=== PATIENT | male | born 1950 | race American Indian/Alaskan Native ===

== ENCOUNTER 2017-10-17 19:55 | Emergency (ER) | payer MEDICARE, BC, OTHER ==
--- NOTE | 2017-10-17 19:58 | EDM.PDOC ---
ED HPI GENERAL MEDICAL PROBLEM - General Stated Complaint: LT ABDOMINAL PAIN Time Seen by Provider: 10/17/17 19:56 Source of Information: Reports: Patient History Limitations: Reports: No Limitations - History of Present Illness INITIAL COMMENTS - FREE TEXT/NARRATIVE: HISTORY AND PHYSICAL: History of present illness: Patient is a 67-year-old male who presents to the emergency room with complaints of left sided rib pain. He reports that he fell on the ice on 2017 and was evaluated at [facility] and had imaging done here. He has been taking Tylenol [id number] for pain management without any relief. Today, prior to arrival he coughed and felt intense pain to his left low rib. Denies any new falls, trauma or injury. History of COPD, HTN, afib, and PVD. Review of systems: As per history of present illness and below otherwise all systems reviewed and negative. Past medical history: As per history of present illness and as reviewed below otherwise noncontributory. Surgical history: As per history of present illness and as reviewed below otherwise noncontributory. Social history: No reported history of drug or alcohol abuse. Family history: As per history of present illness and as reviewed below otherwise noncontributory. Physical exam: General: Well-developed and well-nourished 67-year-old male. Alert and oriented. Nontoxic appearing and in no acute distress. HEENT: Atraumatic, normocephalic, pupils equal and reactive bilaterally, negative for conjunctival pallor or scleral icterus, mucous membranes moist, throat clear, neck supple, nontender, trachea midline. No drooling or trismus noted. No meningeal signs Lungs: Rhonchi noted to posterior bases bilaterally, breath sounds equal bilaterally, chest nontender. Heart: S1S2, regular rate and rhythm without overt murmur Abdomen: Soft, nondistended, nontender. Negative for masses or hepatosplenomegaly. Negative for costovertebral tenderness. Pelvis: Stable nontender. Genitourinary: Deferred. Rectal: Deferred. Skin: Intact, warm, dry. No lesions or rashes noted. Extremities: Atraumatic, moves all extremities per self without difficulty or deficits, does have mild tenderness to the left mid-axillary chest wall negative for cords or calf pain. Neurovascular unremarkable. Neuro: Awake, alert, oriented. Cranial nerves II through XII unremarkable. Cerebellum unremarkable. Motor and sensory unremarkable throughout. Exam nonfocal. Notes: 10/12/2017: Chest x-ray - no acute findings. 10/13/2017: Patient was evaluated in the emergency room and had a CT of the chest, abdomen, pelvis - no acute findings. Due to the patient's physical findings and history of COPD I will treat him with antibiotics and Medrol Dosepak. X-ray shows a suspected seventh rib fracture, nondisplaced. Will prescribe [place] 5/325 (Disp # 15, NRF). Diagnostics: Chest xray with left rib detail Therapeutics: Dilaudid 1 mg IM Impression: Bronchitis Rib fracture, left Plan: 1. Please take the antibiotic and medrol dose pack as directed. [place] as directed to alleviate moderate-severe pain. This medication may cause drowsiness , so do not take while driving or needing to be functioning outside the house. Continued with Tylenol as needed for pain. 2. Use the incentive spirometer 3-4 times daily. 3. Follow up with your primary care provider in the next 2-3 days. Return to the ED as needed and as discussed. Definitive disposition and diagnosis as appropriate pending reevaluation and review of above. Onset: Sudden Duration: Day(s): Location: Reports: Chest Left chest Pain Score (Numeric/FACES): 10 - Related Data Allergies Allergy/AdvReac Type Severity Reaction Status Date / Time alendronate sodium Allergy Diarrhea Verified 10/17/17 20:09 [From Fosamax] atorvastatin [From Lipitor] Allergy Hives Verified 10/17/17 20:09 ibuprofen Allergy Cannot Verified 10/17/17 20:10 Remember lisinopril Allergy Hives Verified 10/17/17 20:09 Home Meds: Home Meds Albuterol/Ipratropium [Combivent Respimat] 2 puff IH BID 08/21/16 [History] Aspirin 81 mg PO BRK 08/21/16 [History] Cholecalciferol (Vitamin D3) [D3-2000] 2,000 unit PO DAILY 08/21/16 [History] Colchicine 0.6 mg PO DAILY 08/21/16 [History] Colestipol [Colestipol HCl] 4 gm PO BID 08/21/16 [History] Fluticasone/Salmeterol [Advair Diskus 100-50] 1 puff INH BID 08/21/16 [History] Losartan [Cozaar] 50 mg PO DAILY 08/21/16 [History] Magnesium Chloride [Slow-Mag] 4 tab ORAL.INH TID 08/21/16 [History] Metoprolol Succinate [Toprol XL] 12.5 mg PO DAILY 08/21/16 [History] [place]-3/DHA/Epa/Fish Oil [Fish Oil 1,000 mg Softgel] 1 each PO DAILY 08/21/16 [ History] Propafenone [Rythmol] 150 mg PO Q8H 08/21/16 [History] Rosuvastatin [Crestor] 20 mg PO BEDTIME 08/21/16 [History] Warfarin [Coumadin] 2.5 mg PO TU@1400 08/21/16 [History] Warfarin [Coumadin] 5 mg PO SUMOWETHFRSA@1400 08/21/16 [History] amLODIPine [Norvasc] 5 mg PO DAILY 08/21/16 [History] Acetaminophen [Tylenol] 650 mg PO Q4H PRN #0 tablet 08/23/16 [Rx] Albuterol/Ipratropium [DuoNeb 3.0-0.5 MG/3 ML] 3 ml NEB Q4H PRN #1 box 08/23/16 [Rx] Levalbuterol HCl 1.25 mg IH QID PRN #1 box 08/23/16 [Rx] Levofloxacin [Levaquin] 500 mg PO Q24H #4 tablet 08/23/16 [Rx] Oseltamivir [Tamiflu] 30 mg PO BID #6 cap 08/23/16 [Rx] predniSONE 40 mg PO DAILY #6 tablet 08/23/16 [Rx] predniSONE [Prednisone] 5 mg PO WITHBREAKFAST #0 08/23/16 [Rx] Past Medical History HEENT History: Reports: Cataract, Hard of Hearing, Impaired Vision Cardiovascular History: Reports: Afib, Hypertension Respiratory History: Reports: COPD Other Respiratory History: Emphesema, with activity Gastrointestinal History: Denies: Cirrhosis Other Gastrointestinal History: Pancreatic cancer, partial removal ("tail end") , abdominal hernia Genitourinary History: Reports: Chronic Renal Insuffiency Musculoskeletal History: Reports: Fracture, Gout, Other (See Below) Other Musculoskeletal History: Polymyalgia rheumatica. Fx to (L) collarbone, thumb (L), toe (L) Neurological History: Reports: Other (See Below) Other Neuro History: brain bleed Oncologic (Cancer) History: Reports: Other (See Below) Other Oncologic History: PMR Dermatologic History: Reports: Other (See Below) Other Dermatologic History: Basal cell carcinoma to nose - Infectious Disease History Infectious Disease History: Reports: Chicken Pox - Past Surgical History GI Surgical History: Reports: Other (See Below) Male Surgical History: Reports: Other (See Below) Endocrine Surgical History: Reports: Other (See Below) Musculoskeletal Surgical History: Reports: Other (See Below) Dermatological Surgical History: Reports: Skin Biopsy Social & Family History - Family History Family Medical History: Noncontributory Cardiac: Reports: [place] Respiratory: Reports: COPD - Tobacco Use Smoking Status *Q: Current Every Day Smoker Years of Tobacco use: 50 Packs/Tins Daily: 0.5 - Caffeine Use Caffeine Use: Reports: Coffee - Recreational Drug Use Recreational Drug Use: No ED ROS GENERAL - Review of Systems Review Of Systems: ROS reveals no pertinent complaints other than HPI. ED EXAM, GENERAL - Physical Exam Exam: See Below (See dictation) Course - Vital Signs Last Recorded V/S: Last Vital Signs Temp 97.7 F 10/17/17 19:55 Pulse 73 10/17/17 19:55 Resp 20 10/17/17 19:55 BP 138/87 10/17/17 19:55 Pulse Ox 97 10/17/17 19:55 - Orders/Labs/Meds Orders: Active Orders 24 hr Category Date Time Status Ribs 2V w Chest Lt [CR] Stat Exams 10/17/17 19:57 Taken Meds: Medications Discontinued Medications Generic Name Dose Route Start Last Admin Trade Name Freq PRN Reason Stop Dose Admin Hydromorphone HCl 1 mg 10/17/17 20:09 10/17/17 20:19 Dilaudid IM 10/17/17 20:10 1 mg ONETIME ONE Administration Departure - Departure Time of Disposition: 21:10 Disposition: Home, Self-Care 01 Condition: Good Clinical Impression: Bronchitis Rib fracture Qualifiers: Encounter type: subsequent encounter Rib fracture type: single rib Fracture type: closed Laterality: left Fracture healing: with routine healing Qualified Code(s): S22.32XD - Fracture of one rib, left side, subsequent encounter for fracture with routine healing - Discharge Information Instructions: Rib Fracture, Chronic Bronchitis Referrals: PCP,None [Primary Care Provider] - Additional Instructions: The following information is given to patients seen in the emergency department who are being discharged to home. This information is to outline your options for follow-up care. We provide all patients seen in our emergency department with a follow-up referral. The need for follow-up, as well as the timing and circumstances, are variable depending upon the specifics of your emergency department visit. If you don't have a primary care physician on staff, we will provide you with a referral. We always advise you to contact your personal physician following an emergency department visit to inform them of the circumstance of the visit and for follow-up with them and/or the need for any referrals to a consulting specialist. The emergency department will also refer you to a specialist when appropriate. This referral assures that you have the opportunity for follow-up care with a specialist. All of these measure are taken in an effort to provide you with optimal care, which includes your follow-up. Under all circumstances we always encourage you to contact your private physician who remains a resource for coordinating your care. When calling for follow-up care, please make the office aware that this follow-up is from your recent emergency room visit. If for any reason you are refused follow-up, please contact the [facility] Emergency Department at and asked to speak to the emergency department charge nurse. [facility] [address] [place] [phone] 1. Please take the antibiotic and medrol dose pack as directed. [place] as directed to alleviate moderate -severe pain. This medication may cause drowsiness, so do not take while driving or needing to be functioning outside the house. Continued with Tylenol as needed for pain. 2. Use the incentive spirometer 3-4 times daily. 3. Follow up with your primary care provider in the next 2-3 days. Return to the ED as needed and as discussed. - My Orders Last 24 Hours: My Active Orders 10/17/17 19:57 Ribs 2V w Chest Lt [CR] Stat - Assessment/Plan Last 24 Hours: My Active Orders 10/17/17 19:57 Ribs 2V w Chest Lt [CR] Stat
[2017-10-17] MEDS ORDERED: HYDROmorphone 2 MG/ML SDV IM ONE (20:09)
[2017-10-17 21:42] VITALS: BP 115/78
--- NOTE | 2017-10-18 09:39 | CR ---
EXAM DATE: 10/17/17 PATIENT'S AGE: 67 Patient: DIANA FLORES Facility: [place], [place] Site . Site : 1950 Study: XRay Chest Left [id number]/27/2018 9:02:50 PM Ordering Physician: Doctor Hsu Final Report: INDICATION: Injury and pain TECHNIQUE: Chest and left ribs 5 views. COMPARISON: 08/21/2016 FINDINGS: Cardiovascular and mediastinum: Heart size and vasculature are normal in caliber and appearance. Mediastinum is within normal limits. Lungs and pleural spaces: Lungs are clear. No sign of infiltrate or mass. No sign of pleural effusion. No pneumothorax. Bones and soft tissues: Detailed oblique images of the left ribs demonstrate periosteal reaction in the anterior left 7th rib consistent with a subacute fracture. No other fracture or dislocation evident. IMPRESSION: Nondisplaced subacute fracture is suspected in the anterior left 7th rib. Remainder of the left ribs and chest are unremarkable. Dictated by Reymundo Harden MD @ 10/17/2017 9:11:57 PM Dictated by: Reymundo Harden MD @ 10/17/2017 21:12:16 (Electronic Signature) Report Signed by Proxy. ELMO
== END 2017-10-17 22:00 | disposition home or self-care (01) ==
LOC: MW.ED 19:55
DX: S22.32XA Fracture of one rib, left side, initial encounter for closed fracture (principal); J40 Bronchitis, not specified as acute or chronic; I12.9 Hypertensive chronic kidney disease with stage 1 through stage 4 chronic kidney disease, or unspecified chronic kidney disease; N18.9 Chronic kidney disease, unspecified; F17.210 Nicotine dependence, cigarettes, uncomplicated; Z88.8 Allergy status to other drugs, medicaments and biological substances; Z79.899 Other long term (current) drug therapy; W00.9XXA Unspecified fall due to ice and snow, initial encounter
CPT/HCPCS: 71101; 96372; 99283; J1170

== ENCOUNTER 2018-09-25 18:57 | Observation (INO) | payer MEDICARE, BC, OTHER ==
--- NOTE | 2018-09-25 19:03 | EDM.PDOC ---
ED HPI GENERAL MEDICAL PROBLEM - General Chief Complaint: Respiratory Problem Stated Complaint: fever,sob Time Seen by Provider: 09/25/18 19:03 Source of Information: Reports: Patient - History of Present Illness INITIAL COMMENTS - FREE TEXT/NARRATIVE: HISTORY AND PHYSICAL: History of present illness: [Patient presents with fever measured at home up to 101, and shortness of breath , on arrival after ambulation to the ER from his car he was found to be 81% on room air, he has noted intermittent cough over the last month He also complains of epigastric pain, 8 out of 10 nonradiating he has had surgical procedure involving the pancreatic tail, patient declines pain medication for this at this time He has history of 1 functioning kidney and history chronic disease per patient, his other kidney has atrophied is followed by specialists in [place] for all of the above No current fever nausea vomiting chills sweats no chest pain headache dizziness or palpitation no bowel or urine symptoms ] Review of systems: As per history of present illness and below otherwise all systems reviewed and negative. Past medical history: As per history of present illness and as reviewed below otherwise noncontributory. Surgical history: As per history of present illness and as reviewed below otherwise noncontributory. Social history: No reported history of drug or alcohol abuse. Family history: As per history of present illness and as reviewed below otherwise noncontributory. Physical exam: HEENT: Atraumatic, normocephalic, pupils reactive, negative for conjunctival pallor or scleral icterus, mucous membranes moist, throat clear, neck supple, nontender, trachea midline. Lungs: Clear to auscultation, breath sounds equal bilaterally, chest nontender. Heart: S1S2, regular, negative for clicks, rubs, or JVD. Abdomen: protuberant abdomen tender in the epigastrium on deep palpation. Negative for masses or hepatosplenomegaly. Negative for costovertebral tenderness. Pelvis: Stable nontender. Genitourinary: Deferred. Rectal: Deferred. Extremities: Atraumatic, negative for cords or calf pain. Neurovascular unremarkable. Neuro: Awake, alert, oriented. Cranial nerves II through XII unremarkable. Cerebellum unremarkable. Motor and sensory unremarkable throughout. Exam nonfocal. Diagnostics: [CBC CMP UA blood cultures lipase lactic: Blood INR BNP EKG Chest 1 view] CT abdomen pelvis with no contrast secondary to renal function Therapeutics: [Normal saline DuoNeb Solu-Medrol 125 mg IV ] 1 g Rocephin IV Azithromycin 500 mg IV Impression: [ hypoxia Fever ]pancreatic history Epigastric pain -pancreatic history electroite abnormalities Elevated troponin Chronic history baseline Definitive disposition and diagnosis as appropriate pending reevaluation and review of above. Abdominal Pain Score (Numeric/FACES): 8 - Related Data Allergies Allergy/AdvReac Type Severity Reaction Status Date / Time alendronate sodium Allergy Diarrhea Verified 09/25/18 19:02 [From Fosamax] atorvastatin [From Lipitor] Allergy Hives Verified 09/25/18 19:02 ibuprofen Allergy Cannot Verified 09/25/18 19:02 Remember lisinopril Allergy Hives Verified 09/25/18 19:02 Home Meds: Home Meds Albuterol/Ipratropium [Combivent Respimat] 2 puff IH BID 08/21/16 [History] Aspirin 81 mg PO DAILY 08/21/16 [History] Cholecalciferol (Vitamin D3) [D3-2000] 2,000 unit PO DAILY 08/21/16 [History] Colchicine 0.6 mg PO DAILY 08/21/16 [History] Colestipol [Colestipol HCl] 4 gm PO BID 08/21/16 [History] Fluticasone/Salmeterol [Advair Diskus 100-50] 1 puff INH BID 08/21/16 [History] Losartan [Cozaar] 50 mg PO DAILY 08/21/16 [History] Magnesium Chloride [Slow-Mag] 4 tab ORAL.INH TID 08/21/16 [History] Metoprolol Succinate [Toprol XL] 12.5 mg PO DAILY 08/21/16 [History] [place]-3/DHA/Epa/Fish Oil [Fish Oil 1,000 mg Softgel] 1 each PO DAILY 08/21/16 [ History] Propafenone [Rythmol] 150 mg PO Q8H 08/21/16 [History] Rosuvastatin [Crestor] 20 mg PO BEDTIME 08/21/16 [History] Warfarin [Coumadin] 2.5 mg PO TU@1400 08/21/16 [History] Warfarin [Coumadin] 5 mg PO SUMOWETHFRSA@1400 08/21/16 [History] amLODIPine [Norvasc] 5 mg PO DAILY 08/21/16 [History] Acetaminophen [Tylenol] 650 mg PO Q4H PRN #0 tablet 08/23/16 [Rx] Albuterol/Ipratropium [DuoNeb 3.0-0.5 MG/3 ML] 3 ml NEB Q4H PRN #1 box 08/23/16 [Rx] Levalbuterol HCl 1.25 mg IH QID PRN #1 box 08/23/16 [Rx] Levofloxacin [Levaquin] 500 mg PO Q24H #4 tablet 08/23/16 [Rx] Oseltamivir [Tamiflu] 30 mg PO BID #6 cap 08/23/16 [Rx] predniSONE 40 mg PO DAILY #6 tablet 08/23/16 [Rx] predniSONE [Prednisone] 5 mg PO WITHBREAKFAST #0 08/23/16 [Rx] Past Medical History HEENT History: Reports: Cataract, Hard of Hearing, Impaired Vision Cardiovascular History: Reports: Afib, Hypertension Respiratory History: Reports: COPD Other Respiratory History: Emphesema, with activity Gastrointestinal History: Denies: Cirrhosis Other Gastrointestinal History: Pancreatic cancer, partial removal ("tail end") , abdominal hernia Genitourinary History: Reports: Chronic Renal Insuffiency Musculoskeletal History: Reports: Fracture, Gout, Other (See Below) Other Musculoskeletal History: Polymyalgia rheumatica. Fx to (L) collarbone, thumb (L), toe (L) Neurological History: Reports: Other (See Below) Other Neuro History: brain bleed Oncologic (Cancer) History: Reports: Other (See Below) Other Oncologic History: PMR Dermatologic History: Reports: Other (See Below) Other Dermatologic History: Basal cell carcinoma to nose - Infectious Disease History Infectious Disease History: Reports: Chicken Pox - Past Surgical History GI Surgical History: Reports: Other (See Below) Male Surgical History: Reports: Other (See Below) Endocrine Surgical History: Reports: Other (See Below) Musculoskeletal Surgical History: Reports: Other (See Below) Dermatological Surgical History: Reports: Skin Biopsy Social & Family History - Family History Family Medical History: Noncontributory Cardiac: Reports: [place] Respiratory: Reports: COPD - Caffeine Use Caffeine Use: Reports: Coffee ED ROS GENERAL - Review of Systems Review Of Systems: See Below ED EXAM, GENERAL - Physical Exam Exam: See Below Course - Vital Signs Last Recorded V/S: Last Vital Signs Temp 97.1 F 09/25/18 19:03 Pulse 68 09/25/18 21:14 Resp 21 H 09/25/18 21:14 BP 114/78 09/25/18 21:14 Pulse Ox 95 09/25/18 21:14 - Orders/Labs/Meds Orders: Active Orders 24 hr Category Date Time Status EKG Documentation Completion [RC] STAT Care 09/25/18 19:08 Active RT Aerosol Therapy [RC] ASDIRECTED Care 09/25/18 19:24 Active CULTURE BLOOD [BC] Stat Lab 09/25/18 19:20 Received CULTURE BLOOD [BC] Stat Lab 09/25/18 19:34 Results CULTURE STREP A CONFIRMATION [] Stat Lab 09/25/18 19:46 Results STREP SCRN A RAPID W CULT CONF [] Stat Lab 09/25/18 19:46 Results UA RFX [place] AND CULT IF INDIC [URIN] Stat Lab 09/25/18 19:09 Ordered Sodium Chloride 0.9% [Normal Saline] 1,000 ml Med 09/25/18 19:30 Active IV STAT Blood Culture x2 Reflex Set [OM.PC] Stat Oth 09/25/18 19:09 Ordered Medication Orders Sodium Chloride (Normal Saline) 1,000 mls @ 125 mls/hr IV STAT ESTEFANY Last Admin: 09/25/18 19:31 Dose: 125 mls/hr Labs: Laboratory Tests 09/25/18 09/25/18 09/25/18 Range/Units 19:20 19:20 19:20 WBC 14.35 H (4.0-11.0) K/uL RBC 4.62 (4.50-5.90) M/uL Hgb 15.7 (13.0-17.0) g/dL Hct 46.9 (38.0-50.0) % MCV 101.5 H (80.0-98.0) fL MCH 34.0 H (27.0-32.0) pg MCHC 33.5 (31.0-37.0) g/dL RDW Std Deviation 59.4 (28.0-62.0) fl RDW Coeff of Carol 16 H (11.0-15.0) % Plt Count 219 (150-400) K/uL MPV 10.30 (7.40-12.00) fL Neut % (Auto) 90.2 H (48.0-80.0) % Lymph % (Auto) 4.3 L (16.0-40.0) % [place] % (Auto) 3.0 (0.0-15.0) % Eos % (Auto) 2.4 (0.0-7.0) % Baso % (Auto) 0.1 (0.0-1.5) % Neut # (Auto) 12.9 H (1.4-5.7) K/uL Lymph # (Auto) 0.6 (0.6-2.4) K/uL [place] # (Auto) 0.4 (0.0-0.8) K/uL Eos # (Auto) 0.4 (0.0-0.7) K/uL Baso # (Auto) 0.0 (0.0-0.1) K/uL Nucleated RBC % 0.2 /100WBC Nucleated RBCs # 0 K/uL INR 2.28 Lactate 1.5 (0.20-2.00) mmol/L Sodium (136-148) mmol/L Potassium (3.5-5.1) mmol/L Chloride (98-107) mmol/L Carbon Dioxide (21.0-32.0) mmol/L BUN (7.0-18.0) mg/dL Creatinine (0.8-1.3) mg/dL Est Cr Clr Drug Dosing mL/min Estimated GFR (MDRD) ml/min Glucose (74-106) mg/dL Calcium (8.5-10.1) mg/dL Total Bilirubin (0.2-1.0) mg/dL AST (15-37) IU/L ALT (14-63) IU/L Alkaline Phosphatase (46-116) U/L Troponin I (0.000-0.056) ng/mL B-Natriuretic Peptide (<100) PG/ML Total Protein (6.4-8.2) g/dL Albumin (3.4-5.0) g/dL Globulin (2.6-4.0) g/dL Albumin/Globulin Ratio (0.9-1.6) Lipase (73-393) U/L 09/25/18 09/25/18 Range/Units 19:20 19:20 WBC (4.0-11.0) K/uL RBC (4.50-5.90) M/uL Hgb (13.0-17.0) g/dL Hct (38.0-50.0) % MCV (80.0-98.0) fL MCH (27.0-32.0) pg MCHC (31.0-37.0) g/dL RDW Std Deviation (28.0-62.0) fl RDW Coeff of Carol (11.0-15.0) % Plt Count (150-400) K/uL MPV (7.40-12.00) fL Neut % (Auto) (48.0-80.0) % Lymph % (Auto) (16.0-40.0) % [place] % (Auto) (0.0-15.0) % Eos % (Auto) (0.0-7.0) % Baso % (Auto) (0.0-1.5) % Neut # (Auto) (1.4-5.7) K/uL Lymph # (Auto) (0.6-2.4) K/uL [facility] # (Auto) (0.0-0.8) K/uL Eos # (Auto) (0.0-0.7) K/uL Baso # (Auto) (0.0-0.1) K/uL Nucleated RBC % /100WBC Nucleated RBCs # K/uL INR Lactate (0.20-2.00) mmol/L Sodium 138 (136-148) mmol/L Potassium 5.5 H (3.5-5.1) mmol/L Chloride 108 H (98-107) mmol/L Carbon Dioxide 19.0 L (21.0-32.0) mmol/L BUN 28 H (7.0-18.0) mg/dL Creatinine 1.7 H (0.8-1.3) mg/dL Est Cr Clr Drug Dosing 41.59 mL/min Estimated GFR (MDRD) 40.3 ml/min Glucose 98 (74-106) mg/dL Calcium 8.5 (8.5-10.1) mg/dL Total Bilirubin 0.6 (0.2-1.0) mg/dL AST 21 (15-37) IU/L ALT 33 (14-63) IU/L Alkaline Phosphatase 58 (46-116) U/L Troponin I 0.088 H* (0.000-0.056) ng/mL B-Natriuretic Peptide 23 (<100) PG/ML Total Protein 6.7 (6.4-8.2) g/dL Albumin 3.1 L (3.4-5.0) g/dL Globulin 3.6 (2.6-4.0) g/dL Albumin/Globulin Ratio 0.9 (0.9-1.6) Lipase 139 (73-393) U/L Meds: Medications Generic Name Dose Route Start Last Admin Trade Name Freq PRN Reason Stop Dose Admin Sodium Chloride 1,000 mls @ 125 mls/hr 09/25/18 19:30 09/25/18 19:31 Normal Saline IV 125 mls/hr STAT ESTEFANY Administration Discontinued Medications Generic Name Dose Route Start Last Admin Trade Name Freq PRN Reason Stop Dose Admin Albuterol/Ipratropium 3 ml 09/25/18 19:24 09/25/18 19:31 Duoneb 3.0-0.5 Mg/3 Ml NEB 09/25/18 19:25 3 ml ONETIME ONE Administration Methylprednisolone Sodium Succinate 125 mg 09/25/18 19:24 09/25/18 19:31 Solu-Medrol IVPUSH 09/25/18 19:25 125 mg ONETIME ONE Administration Departure - Departure Time of Disposition: 21:43 Disposition: Home, Self-Care 01 Condition: Good Clinical Impression: Hypoxia, COPD (chronic obstructive pulmonary disease), Elevated troponin, COPD exacerbation, Bronchitis - Discharge Information Referrals: PCP,None [Primary Care Provider] - Forms: ED Department Discharge - My Orders Last 24 Hours: My Active Orders 09/25/18 19:08 EKG Documentation Completion [RC] STAT 09/25/18 19:09 UA RFX ANGELICA AND CULT IF INDIC [URIN] Stat Blood Culture x2 Reflex Set [OM.PC] Stat 09/25/18 19:20 CULTURE BLOOD [BC] Stat 09/25/18 19:24 RT Aerosol Therapy [RC] ASDIRECTED 09/25/18 19:30 Sodium Chloride 0.9% [Normal Saline] 1,000 ml IV STAT 09/25/18 19:34 CULTURE BLOOD [BC] Stat 09/25/18 19:46 CULTURE STREP A CONFIRMATION [RM] Stat STREP SCRN A RAPID W CULT CONF [RM] Stat - Assessment/Plan Last 24 Hours: My Active Orders 09/25/18 19:08 EKG Documentation Completion [RC] STAT 09/25/18 19:09 UA RFX ANGELICA AND CULT IF INDIC [URIN] Stat Blood Culture x2 Reflex Set [OM.PC] Stat 09/25/18 19:20 CULTURE BLOOD [BC] Stat 09/25/18 19:24 RT Aerosol Therapy [RC] ASDIRECTED 09/25/18 19:30 Sodium Chloride 0.9% [Normal Saline] 1,000 ml IV STAT 09/25/18 19:34 CULTURE BLOOD [BC] Stat 09/25/18 19:46 CULTURE STREP A CONFIRMATION [RM] Stat STREP SCRN A RAPID W CULT CONF [RM] Stat
[2018-09-25] MEDS ORDERED: Albuterol/Ipratropium 3.0-0.5 MG/3 ML Neb Soln NEB ONE (19:24)
[2018-09-25] MEDS ORDERED: methylPREDNISolone Sodium Succinate 125 MG/2 ML SDV IVPUSH ONE (19:24)
[2018-09-25] MEDS: Sodium Chloride 0.9% 1,000 ML IV SCH (19:31)
--- NOTE | 2018-09-25 19:45 | CR ---
Indication: Fever, hypoxia Technique: Chest 1 view Comparison: August 21, 2016 Findings/Impression: Stable cardiac size. New linear atelectasis in the left mid lung. No pneumothorax, focal consolidation, or effusion. 1 centimeter round density projecting over the right lateral lower lung may represent a nipple shadow. Recommend repeat chest radiograph with nipple marker. Dictated by Hiral Wade MD @ Sep 25 2018 7:42PM Signed by Dr. Hiral Wade @ Sep 25 2018 7:43PM
--- NOTE | 2018-09-25 21:02 | CT ---
INDICATION: Abdominal pain. COMPARISON: 10/13/2017 TECHNIQUE: CT examination of the abdomen and pelvis was performed without contrast enhancement using 3 mm thick axial sections from the lung bases through the pubic symphysis. Oral contrast was not administered. Please note that all CT scans at this facility use dose modulation, iterative reconstruction, and/or weight-based dosing when appropriate to reduce radiation dose to as low as reasonably achievable. FINDINGS: In the abdomen, the unenhanced liver and adrenals are normal in appearance. 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 The pancreatic head and body are normal in appearance. Again seen is prominent atrophy of the left kidney. Again seen is not a nonobstructive 7 millimeter calculus in the lower pole of the right kidney. The right kidney is otherwise normal in appearance. There is no sign of right hydronephrosis, hydroureter, or ureterolithiasis. The gallbladder is normal in appearance. The abdominal aorta is normal in caliber with no sign of dilatation. There is no sign of retroperitoneal mass or adenopathy. The stomach, loops of small bowel, and colon in the abdomen are normal in appearance. In the pelvis, the appendix is nonvisualized, but there is no sign of an inflammatory process in the area of the appendix. Again seen is the small left indirect inguinal hernia containing a short segment of the nondistended proximal sigmoid colon. There is no change in a small fat containing right indirect inguinal hernia and a tiny fat containing periumbilical hernia. The loops of small bowel and colon in the pelvis are normal in appearance. The prostate is normal in appearance. The urinary bladder is normal in appearance. There is no sign of pelvic or inguinal mass or adenopathy. The lung bases are clear. The osseous structures are normal in appearance for the patient`s age. 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 No change in the 7 millimeter nonobstructive calculus in the lower pole of the right kidney. No change in prominent left renal atrophy. CT of the pelvis shows no change in a small fat containing left indirect umbilical hernia containing a short segment of nondistended proximal sigmoid colon. No change in small fat containing right indirect inguinal hernia and tiny fat containing periumbilical hernia. Please note that all CT scans at this facility use dose modulation, iterative reconstruction, and/or weight-based dosing when appropriate to reduce radiation dose to as low as reasonably achievable. Dictated by Bharathi Corona MD @ Sep 25 2018 8:42PM Signed by Dr. Bharathi Corona @ Sep 25 2018 8:59PM
--- NOTE | 2018-09-25 23:54 | PCM.HP ---
H&P History of Present Illness - General Date of Service: 09/25/18 Admit Problem/Dx: Admission Diagnosis/Problem Admission Diagnosis/Problem Hypoxia Abdominal Pain Score (Numeric/FACES): 8 Frontal Forehead Pain Score (Numeric/FACES): 2 - Related Data Allergies/Adverse Reactions: Allergies Allergy/AdvReac Type Severity Reaction Status Date / Time alendronate sodium Allergy Diarrhea Verified 09/25/18 19:02 [From Fosamax] atorvastatin [From Lipitor] Allergy Hives Verified 09/25/18 19:02 ibuprofen Allergy Cannot Verified 09/25/18 19:02 Remember lisinopril Allergy Hives Verified 09/25/18 19:02 Home Medications: Home Meds Albuterol/Ipratropium [Combivent Respimat] 1 puff INH BID 08/21/16 [History] Aspirin 81 mg PO DAILY 08/21/16 [History] Cholecalciferol (Vitamin D3) [D3-2000] 2,000 unit PO DAILY 08/21/16 [History] Colchicine 0.6 mg PO DAILY 08/21/16 [History] Colestipol [Colestipol HCl] 4 gm PO BID 08/21/16 [History] Fluticasone/Salmeterol [Advair Diskus 100-50] 1 puff INH BID 08/21/16 [History] Losartan [Cozaar] 50 mg PO DAILY 08/21/16 [History] Magnesium Chloride [Slow-Mag] 4 tab PO TID 08/21/16 [History] Metoprolol Succinate [Toprol XL] 12.5 mg PO DAILY 08/21/16 [History] [place]-3/DHA/Epa/Fish Oil [Fish Oil 1,000 mg Softgel] 1 each PO DAILY 08/21/16 [ History] Propafenone [Rythmol] 150 mg PO Q8H 08/21/16 [History] Rosuvastatin [Crestor] 20 mg PO BEDTIME 08/21/16 [History] Warfarin [Coumadin] 2.5 mg PO ASDIRECTED 08/21/16 [History] Warfarin [Coumadin] 5 mg PO ASDIRECTED 08/21/16 [History] amLODIPine [Norvasc] 5 mg PO DAILY 08/21/16 [History] Acetaminophen [Tylenol] 650 mg PO Q4H PRN #0 tablet 08/23/16 [Rx] Albuterol/Ipratropium [DuoNeb 3.0-0.5 MG/3 ML] 3 ml NEB Q4H PRN #1 box 08/23/16 [Rx] predniSONE [Prednisone] 5 mg PO WITHBREAKFAST #0 08/23/16 [Rx] Levalbuterol HCl 1.25 mg NEB QID PRN 09/25/18 [History] Past Medical History HEENT History: Reports: Cataract, Hard of Hearing, Impaired Vision Cardiovascular History: Reports: Afib, Hypertension Respiratory History: Reports: COPD Other Respiratory History: Emphesema, with activity Gastrointestinal History: Denies: Cirrhosis Other Gastrointestinal History: Pancreatic cancer, partial removal ("tail end") , abdominal hernia Genitourinary History: Reports: Chronic Renal Insuffiency Musculoskeletal History: Reports: Fracture, Gout, Other (See Below) Other Musculoskeletal History: Polymyalgia rheumatica. Fx to (L) collarbone, thumb (L), toe (L) Neurological History: Reports: Other (See Below) Other Neuro History: brain bleed Hematologic History: Reports: None Immunologic History: Reports: None Oncologic (Cancer) History: Reports: Other (See Below) Other Oncologic History: PMR Dermatologic History: Reports: Other (See Below) Other Dermatologic History: Basal cell carcinoma to nose - Infectious Disease History Infectious Disease History: Reports: Chicken Pox - Past Surgical History GI Surgical History: Reports: Other (See Below) Male Surgical History: Reports: Other (See Below) Endocrine Surgical History: Reports: Other (See Below) Musculoskeletal Surgical History: Reports: Other (See Below) Dermatological Surgical History: Reports: Skin Biopsy Social & Family History - Family History Family Medical History: Noncontributory Cardiac: Reports: ME Respiratory: Reports: COPD - Tobacco Use Smoking Status *Q: Former Smoker Years of Tobacco use: 13 Packs/Tins Daily: 1 Used Tobacco, but Quit: Yes Month/Year Tobacco Last Used: 04/2018 Second Hand Smoke Exposure: No - Caffeine Use Caffeine Use: Reports: Coffee, Other Other Caffeine Use: usually drink de-caf coffee - Recreational Drug Use Recreational Drug Use: No Exam - Vital Signs Vital Signs: Last Vital Signs Temp 36.8 C 09/25/18 22:30 Pulse 72 09/25/18 22:30 Resp 16 09/25/18 22:30 BP 117/73 03/05/19 22:30 Pulse Ox 94 L 09/25/18 22:30 Weight: 87.634 kg - Patient Data Lab Results Last 24 hrs: Laboratory Results - last 24 hr 09/25/18 09/25/18 09/25/18 Range/Units 19:20 19:20 19:20 WBC 14.35 H (4.0-11.0) K/uL RBC 4.62 (4.50-5.90) M/uL Hgb 15.7 (13.0-17.0) g/dL Hct 46.9 (38.0-50.0) % MCV 101.5 H (80.0-98.0) fL MCH 34.0 H (27.0-32.0) pg MCHC 33.5 (31.0-37.0) g/dL RDW Std Deviation 59.4 (28.0-62.0) fl RDW Coeff of Carol 16 H (11.0-15.0) % Plt Count 219 (150-400) K/uL MPV 10.30 (7.40-12.00) fL Neut % (Auto) 90.2 H (48.0-80.0) % Lymph % (Auto) 4.3 L (16.0-40.0) % [place] % (Auto) 3.0 (0.0-15.0) % Eos % (Auto) 2.4 (0.0-7.0) % Baso % (Auto) 0.1 (0.0-1.5) % Neut # (Auto) 12.9 H (1.4-5.7) K/uL Lymph # (Auto) 0.6 (0.6-2.4) K/uL [place] # (Auto) 0.4 (0.0-0.8) K/uL Eos # (Auto) 0.4 (0.0-0.7) K/uL Baso # (Auto) 0.0 (0.0-0.1) K/uL Nucleated RBC % 0.2 /100WBC Nucleated RBCs # 0 K/uL INR 2.28 Lactate 1.5 (0.20-2.00) mmol/L Sodium (136-148) mmol/L Potassium (3.5-5.1) mmol/L Chloride (98-107) mmol/L Carbon Dioxide (21.0-32.0) mmol/L BUN (7.0-18.0) mg/dL Creatinine (0.8-1.3) mg/dL Est Cr Clr Drug Dosing mL/min Estimated GFR (MDRD) ml/min Glucose (74-106) mg/dL Calcium (8.5-10.1) mg/dL Total Bilirubin (0.2-1.0) mg/dL AST (15-37) IU/L ALT (14-63) IU/L Alkaline Phosphatase (46-116) U/L Troponin I (0.000-0.056) ng/mL B-Natriuretic Peptide (<100) PG/ML Total Protein (6.4-8.2) g/dL Albumin (3.4-5.0) g/dL Globulin (2.6-4.0) g/dL Albumin/Globulin Ratio (0.9-1.6) Lipase (73-393) U/L 09/25/18 09/25/18 Range/Units 19:20 19:20 WBC (4.0-11.0) K/uL RBC (4.50-5.90) M/uL Hgb (13.0-17.0) g/dL Hct (38.0-50.0) % MCV (80.0-98.0) fL MCH (27.0-32.0) pg MCHC (31.0-37.0) g/dL RDW Std Deviation (28.0-62.0) fl RDW Coeff of Carol (11.0-15.0) % Plt Count (150-400) K/uL MPV (7.40-12.00) fL Neut % (Auto) (48.0-80.0) % Lymph % (Auto) (16.0-40.0) % [place] % (Auto) (0.0-15.0) % Eos % (Auto) (0.0-7.0) % Baso % (Auto) (0.0-1.5) % Neut # (Auto) (1.4-5.7) K/uL Lymph # (Auto) (0.6-2.4) K/uL [place] # (Auto) (0.0-0.8) K/uL Eos # (Auto) (0.0-0.7) K/uL Baso # (Auto) (0.0-0.1) K/uL Nucleated RBC % /100WBC Nucleated RBCs # K/uL INR Lactate (0.20-2.00) mmol/L Sodium 138 (136-148) mmol/L Potassium 5.5 H (3.5-5.1) mmol/L Chloride 108 H (98-107) mmol/L Carbon Dioxide 19.0 L (21.0-32.0) mmol/L BUN 28 H (7.0-18.0) mg/dL Creatinine 1.7 H (0.8-1.3) mg/dL Est Cr Clr Drug Dosing 41.59 mL/min Estimated GFR (MDRD) 40.3 ml/min Glucose 98 (74-106) mg/dL Calcium 8.5 (8.5-10.1) mg/dL Total Bilirubin 0.6 (0.2-1.0) mg/dL AST 21 (15-37) IU/L ALT 33 (14-63) IU/L Alkaline Phosphatase 58 (46-116) U/L Troponin I 0.088 H* (0.000-0.056) ng/mL B-Natriuretic Peptide 23 (<100) PG/ML Total Protein 6.7 (6.4-8.2) g/dL Albumin 3.1 L (3.4-5.0) g/dL Globulin 3.6 (2.6-4.0) g/dL Albumin/Globulin Ratio 0.9 (0.9-1.6) Lipase 139 (73-393) U/L Result Diagrams: 09/25/18 19:20 09/25/18 19:20 [place] Results Last 24 hrs: Microbiology 09/25/18 19:46 Influenza Type A Antigen Screen - Final Nasopharyngeal Swab NEGATIVE INFLUENZA A VIRUS AG Influenza Type B Antigen Screen - Final NEGATIVE INFLUENZA B VIRUS AG 09/25/18 19:46 Group A Streptococcus Rapid Screen - Final Throat NEGATIVE STREP A SCREEN 09/25/18 19:34 Anaerobic Blood Culture - Final Blood - Venous - Lab Draw Problem List Initiated/Reviewed/Updated: Yes Orders Last 24hrs: Active Orders 24 hr Category Date Time Status Admission Status [Patient Status] [ADT] Stat ADT 09/25/18 21:44 Active EKG Documentation Completion [RC] STAT Care 09/25/18 19:08 Active RT Aerosol Therapy [RC] ASDIRECTED Care 09/25/18 19:24 Active CULTURE BLOOD [BC] Stat Lab 09/25/18 19:20 Received CULTURE BLOOD [BC] Stat Lab 09/25/18 19:34 Results CULTURE STREP A CONFIRMATION [RM] Stat Lab 09/25/18 19:46 Results STREP SCRN A RAPID W CULT CONF [RM] Stat Lab 09/25/18 19:46 Results TROPONIN I [CHEM] Routine Lab 09/25/18 23:40 Received TROPONIN I [CHEM] Routine Lab 09/26/18 07:00 Ordered UA RFX PILLO AND CULT IF INDIC [URIN] Stat Lab 09/25/18 19:09 Ordered Sodium Chloride 0.9% [Normal Saline] 1,000 ml Med 09/25/18 19:30 Active IV STAT Blood Culture x2 Reflex Set [OM.PC] Stat Oth 09/25/18 19:09 Ordered Medication Orders Sodium Chloride (Normal Saline) 1,000 mls @ 125 mls/hr IV STAT ESTEFANY Last Admin: 09/25/18 19:31 Dose: 125 mls/hr
[2018-09-26] MEDS ORDERED: Albuterol/Ipratropium 3.0-0.5 MG/3 ML Neb Soln NEB PRN (00:12)
[2018-09-26] MEDS ORDERED: cefTRIAXone 1 GM Vial IVPUSH SCH (00:15)
[2018-09-26] MEDS: cefTRIAXone 1 GM in Premix Bag 1 BAG IV SCH (00:44)
[2018-09-26] MEDS: Sodium Chloride 0.9% 1,000 ML IV SCH (05:05)
[2018-09-26] MEDS: Albuterol/Ipratropium 3.0-0.5 MG/3 ML Neb Soln NEB SCH ×3 (05:51→18:03)
[2018-09-26] MEDS ORDERED: MAGNESIUM CHLORIDE PO SCH (06:00)
[2018-09-26] MEDS: Losartan 50 MG Tab PO SCH (08:12)
[2018-09-26] MEDS: amLODIPine 5 MG Tab PO SCH (08:12)
[2018-09-26] MEDS: Metoprolol Succinate 25 MG Tab.ER PO SCH (08:13)
[2018-09-26] MEDS: Aspirin 81 MG Tab.Chew PO SCH (08:14)
[2018-09-26] MEDS ORDERED: Azithromycin 500 MG in Sodium Chloride 0.9% 250 ML IV SCH ×3 (10:22)
[2018-09-26] MEDS ORDERED: Magnesium Sulfate/Water 4 GM in Premix Bag 1 BAG IV ONE (11:12)
[2018-09-26] MEDS ORDERED: Warfarin 2.5 MG Tab PO ONE (14:00)
[2018-09-26] MEDS ORDERED: Warfarin 5 MG Tab PO SCH (14:00)
--- NOTE | 2018-09-26 14:21 | PCM.HP ---
H&P History of Present Illness - General Date of Service: 09/26/18 Admit Problem/Dx: Admission Diagnosis/Problem Admission Diagnosis/Problem Hypoxia Source of Information: Patient - History of Present Illness Initial Comments - Free Text/Narative: This is a 67-year-old man who is coming in with a chief complaint of fevers and cough shortness of breath and hypoxemia along with abdominal pain and nausea and vomiting. Patient has a significant past surgical history of COPD, atrial fibrillation, polymyalgia rheumatica for which he takes chronic prednisone. Patient likely has a exacerbation of his COPD that's resulted in increased cardiac demand as when he presented to the ED he had hypoxemia and elevated troponins which have now trended down. Patient states that these symptoms started for the past couple of days, his shortness of breath, nausea, abdominal pain primarily persisted overnight which resulted in him coming to the emergency department. Abdominal Pain Score (Numeric/FACES): 2 Frontal Forehead Pain Score (Numeric/FACES): 2 - Related Data Allergies/Adverse Reactions: Allergies Allergy/AdvReac Type Severity Reaction Status Date / Time alendronate sodium Allergy Diarrhea Verified 09/25/18 19:02 [From Fosamax] atorvastatin [From Lipitor] Allergy Hives Verified 09/25/18 19:02 ibuprofen Allergy Cannot Verified 09/25/18 19:02 Remember lisinopril Allergy Hives Verified 09/25/18 19:02 Home Medications: Home Meds Albuterol/Ipratropium [Combivent Respimat] 1 puff INH BID 08/21/16 [History] Aspirin 81 mg PO DAILY 08/21/16 [History] Cholecalciferol (Vitamin D3) [D3-2000] 2,000 unit PO DAILY 08/21/16 [History] Colchicine 0.6 mg PO DAILY 08/21/16 [History] Colestipol [Colestipol HCl] 4 gm PO BID 08/21/16 [History] Fluticasone/Salmeterol [Advair Diskus 100-50] 1 puff INH BID 08/21/16 [History] Losartan [Cozaar] 50 mg PO DAILY 08/21/16 [History] Magnesium Chloride [Slow-Mag] 4 tab PO TID 08/21/16 [History] Metoprolol Succinate [Toprol XL] 12.5 mg PO DAILY 08/21/16 [History] [place]-3/DHA/Epa/Fish Oil [Fish Oil 1,000 mg Softgel] 1 each PO DAILY 08/21/16 [ History] Propafenone [Rythmol] 150 mg PO Q8H 08/21/16 [History] Rosuvastatin [Crestor] 20 mg PO BEDTIME 08/21/16 [History] Warfarin [Coumadin] 2.5 mg PO ASDIRECTED 08/21/16 [History] Warfarin [Coumadin] 5 mg PO ASDIRECTED 08/21/16 [History] amLODIPine [Norvasc] 5 mg PO DAILY 08/21/16 [History] Acetaminophen [Tylenol] 650 mg PO Q4H PRN #0 tablet 08/23/16 [Rx] Albuterol/Ipratropium [DuoNeb 3.0-0.5 MG/3 ML] 3 ml NEB Q4H PRN #1 box 08/23/16 [Rx] predniSONE [Prednisone] 5 mg PO WITHBREAKFAST #0 08/23/16 [Rx] Levalbuterol HCl 1.25 mg NEB QID PRN 09/25/18 [History] Past Medical History HEENT History: Reports: Cataract, Hard of Hearing, Impaired Vision Cardiovascular History: Reports: Afib, Hypertension, Stents Respiratory History: Reports: COPD Other Respiratory History: Emphesema, with activity Gastrointestinal History: Denies: Cirrhosis Other Gastrointestinal History: Pancreatic cancer, partial removal ("tail end") , abdominal hernia Genitourinary History: Reports: Chronic Renal Insuffiency Musculoskeletal History: Reports: Fracture, Gout, Other (See Below) Other Musculoskeletal History: Polymyalgia rheumatica. Fx to (L) collarbone, thumb (L), toe (L) Neurological History: Reports: Other (See Below) Other Neuro History: brain bleed Psychiatric History: Reports: None Hematologic History: Reports: None Immunologic History: Reports: None Oncologic (Cancer) History: Reports: Other (See Below) Other Oncologic History: PMR Dermatologic History: Reports: Other (See Below) Other Dermatologic History: Basal cell carcinoma to nose - Infectious Disease History Infectious Disease History: Reports: Chicken Pox - Past Surgical History Head Surgeries/Procedures: Reports: None GI Surgical History: Reports: Other (See Below) Other GI Surgeries/Procedures: pancreatic cancer Male Surgical History: Reports: Other (See Below) Endocrine Surgical History: Reports: Other (See Below) Musculoskeletal Surgical History: Reports: Other (See Below) Dermatological Surgical History: Reports: Skin Biopsy Social & Family History - Family History Family Medical History: Noncontributory Cardiac: Reports: MD Respiratory: Reports: COPD Oncologic: Reports: Lung - Tobacco Use Smoking Status *Q: Former Smoker Years of Tobacco use: 13 Packs/Tins Daily: 1 Used Tobacco, but Quit: Yes Month/Year Tobacco Last Used: 04/2018 Second Hand Smoke Exposure: No - Caffeine Use Caffeine Use: Reports: Coffee, Other Other Caffeine Use: usually drink de-caf coffee - Recreational Drug Use Recreational Drug Use: No H&P Review of Systems - Review of Systems: Review Of Systems: ROS reveals no pertinent complaints other than HPI. Exam - Exam Exam: See Below - Vital Signs Vital Signs: Last Vital Signs Temp 36.1 C 09/26/18 12:00 Pulse 82 09/26/18 12:11 Resp 22 H 09/26/18 12:00 BP 113/68 09/26/18 12:00 Pulse Ox 96 09/26/18 12:00 Weight: 87.634 kg - Exam General: Alert, Oriented, Cooperative Lungs: Clear to Auscultation, Normal Respiratory Effort Cardiovascular: Regular Rate, Regular Rhythm GI/Abdominal Exam: Soft, Non-Tender Extremities: Normal Inspection - Patient Data Lab Results Last 24 hrs: Laboratory Results - last 24 hr 09/25/18 09/25/18 09/25/18 Range/Units 19:20 19:20 19:20 WBC 14.35 H (4.0-11.0) K/uL RBC 4.62 (4.50-5.90) M/uL Hgb 15.7 (13.0-17.0) g/dL Hct 46.9 (38.0-50.0) % MCV 101.5 H (80.0-98.0) fL MCH 34.0 H (27.0-32.0) pg MCHC 33.5 (31.0-37.0) g/dL RDW Std Deviation 59.4 (28.0-62.0) fl RDW Coeff of Carol 16 H (11.0-15.0) % Plt Count 219 (150-400) K/uL MPV 10.30 (7.40-12.00) fL Neut % (Auto) 90.2 H (48.0-80.0) % Lymph % (Auto) 4.3 L (16.0-40.0) % [place] % (Auto) 3.0 (0.0-15.0) % Eos % (Auto) 2.4 (0.0-7.0) % Baso % (Auto) 0.1 (0.0-1.5) % Neut # (Auto) 12.9 H (1.4-5.7) K/uL Lymph # (Auto) 0.6 (0.6-2.4) K/uL [place] # (Auto) 0.4 (0.0-0.8) K/uL Eos # (Auto) 0.4 (0.0-0.7) K/uL Baso # (Auto) 0.0 (0.0-0.1) K/uL Nucleated RBC % 0.2 /100WBC Nucleated RBCs # 0 K/uL INR 2.28 Lactate 1.5 (0.20-2.00) mmol/L Sodium (136-148) mmol/L Potassium (3.5-5.1) mmol/L Chloride (98-107) mmol/L Carbon Dioxide (21.0-32.0) mmol/L BUN (7.0-18.0) mg/dL Creatinine (0.8-1.3) mg/dL Est Cr Clr Drug Dosing mL/min Estimated GFR (MDRD) ml/min Glucose (74-106) mg/dL Calcium (8.5-10.1) mg/dL Magnesium (1.8-2.4) mg/dL Total Bilirubin (0.2-1.0) mg/dL AST (15-37) IU/L ALT (14-63) IU/L Alkaline Phosphatase (46-116) U/L Troponin I (0.000-0.056) ng/mL B-Natriuretic Peptide (<100) PG/ML Total Protein (6.4-8.2) g/dL Albumin (3.4-5.0) g/dL Globulin (2.6-4.0) g/dL Albumin/Globulin Ratio (0.9-1.6) Lipase (73-393) U/L Urine Color Urine Appearance Urine pH (5.0-8.0) Ur Specific Gap (1.001-1.035) Urine Protein (NEGATIVE) mg/dL Urine Glucose (UA) (NEGATIVE) mg/dL Urine Ketones (NEGATIVE) mg/dL Urine Occult Blood (NEGATIVE) Urine Nitrite (NEGATIVE) Urine Bilirubin (NEGATIVE) Urine Urobilinogen (<2.0) EU/dL Ur Leukocyte Esterase (NEGATIVE) 09/25/18 09/25/18 09/25/18 Range/Units 19:20 19:20 23:40 WBC (4.0-11.0) K/uL RBC (4.50-5.90) M/uL Hgb (13.0-17.0) g/dL Hct (38.0-50.0) % MCV (80.0-98.0) fL MCH (27.0-32.0) pg MCHC (31.0-37.0) g/dL RDW Std Deviation (28.0-62.0) fl RDW Coeff of Carol (11.0-15.0) % Plt Count (150-400) K/uL MPV (7.40-12.00) fL Neut % (Auto) (48.0-80.0) % Lymph % (Auto) (16.0-40.0) % [place] % (Auto) (0.0-15.0) % Eos % (Auto) (0.0-7.0) % Baso % (Auto) (0.0-1.5) % Neut # (Auto) (1.4-5.7) K/uL Lymph # (Auto) (0.6-2.4) K/uL [place] # (Auto) (0.0-0.8) K/uL Eos # (Auto) (0.0-0.7) K/uL Baso # (Auto) (0.0-0.1) K/uL Nucleated RBC % /100WBC Nucleated RBCs # K/uL INR Lactate (0.20-2.00) mmol/L Sodium 138 (136-148) mmol/L Potassium 5.5 H (3.5-5.1) mmol/L Chloride 108 H (98-107) mmol/L Carbon Dioxide 19.0 L (21.0-32.0) mmol/L BUN 28 H (7.0-18.0) mg/dL Creatinine 1.7 H (0.8-1.3) mg/dL Est Cr Clr Drug Dosing 41.59 mL/min Estimated GFR (MDRD) 40.3 ml/min Glucose 98 (74-106) mg/dL Calcium 8.5 (8.5-10.1) mg/dL Magnesium (1.8-2.4) mg/dL Total Bilirubin 0.6 (0.2-1.0) mg/dL AST 21 (15-37) IU/L ALT 33 (14-63) IU/L Alkaline Phosphatase 58 (46-116) U/L Troponin I 0.088 H* 0.067 H* (0.000-0.056) ng/mL B-Natriuretic Peptide 23 (<100) PG/ML Total Protein 6.7 (6.4-8.2) g/dL Albumin 3.1 L (3.4-5.0) g/dL Globulin 3.6 (2.6-4.0) g/dL Albumin/Globulin Ratio 0.9 (0.9-1.6) Lipase 139 (73-393) U/L Urine Color Urine Appearance Urine pH (5.0-8.0) Ur Specific Gap (1.001-1.035) Urine Protein (NEGATIVE) mg/dL Urine Glucose (UA) (NEGATIVE) mg/dL Urine Ketones (NEGATIVE) mg/dL Urine Occult Blood (NEGATIVE) Urine Nitrite (NEGATIVE) Urine Bilirubin (NEGATIVE) Urine Urobilinogen (<2.0) EU/dL Ur Leukocyte Esterase (NEGATIVE) 09/26/18 09/26/18 09/26/18 Range/Units 07:18 07:18 07:18 WBC 8.93 (4.0-11.0) K/uL RBC 4.04 L (4.50-5.90) M/uL Hgb 13.5 (13.0-17.0) g/dL Hct 41.2 (38.0-50.0) % MCV 102.0 H (80.0-98.0) fL MCH 33.4 H (27.0-32.0) pg MCHC 32.8 (31.0-37.0) g/dL RDW Std Deviation 59.7 (28.0-62.0) fl RDW Coeff of Carol 16 H (11.0-15.0) % Plt Count 223 (150-400) K/uL MPV 10.70 (7.40-12.00) fL Neut % (Auto) 88.8 H (48.0-80.0) % Lymph % (Auto) 10.8 L (16.0-40.0) % [place] % (Auto) 0.3 (0.0-15.0) % Eos % (Auto) 0.0 (0.0-7.0) % Baso % (Auto) 0.1 (0.0-1.5) % Neut # (Auto) 7.9 H (1.4-5.7) K/uL Lymph # (Auto) 1.0 (0.6-2.4) K/uL [place] # (Auto) 0.0 (0.0-0.8) K/uL Eos # (Auto) 0.0 (0.0-0.7) K/uL Baso # (Auto) 0.0 (0.0-0.1) K/uL Nucleated RBC % 0.0 /100WBC Nucleated RBCs # 0 K/uL INR Lactate (0.20-2.00) mmol/L Sodium 138 (136-148) mmol/L Potassium 5.0 (3.5-5.1) mmol/L Chloride 107 (98-107) mmol/L Carbon Dioxide 17.2 L (21.0-32.0) mmol/L BUN 30 H (7.0-18.0) mg/dL Creatinine 1.7 H (0.8-1.3) mg/dL Est Cr Clr Drug Dosing 41.59 mL/min Estimated GFR (MDRD) 40.3 ml/min Glucose 142 H (74-106) mg/dL Calcium 8.0 L (8.5-10.1) mg/dL Magnesium (1.8-2.4) mg/dL Total Bilirubin (0.2-1.0) mg/dL AST (15-37) IU/L ALT (14-63) IU/L Alkaline Phosphatase (46-116) U/L Troponin I 0.052 (0.000-0.056) ng/mL B-Natriuretic Peptide (<100) PG/ML Total Protein (6.4-8.2) g/dL Albumin (3.4-5.0) g/dL Globulin (2.6-4.0) g/dL Albumin/Globulin Ratio (0.9-1.6) Lipase (73-393) U/L Urine Color Urine Appearance Urine pH (5.0-8.0) Ur Specific Gap (1.001-1.035) Urine Protein (NEGATIVE) mg/dL Urine Glucose (UA) (NEGATIVE) mg/dL Urine Ketones (NEGATIVE) mg/dL Urine Occult Blood (NEGATIVE) Urine Nitrite (NEGATIVE) Urine Bilirubin (NEGATIVE) Urine Urobilinogen (<2.0) EU/dL Ur Leukocyte Esterase (NEGATIVE) 09/26/18 09/26/18 09/26/18 Range/Units 07:18 07:18 07:20 WBC (4.0-11.0) K/uL RBC (4.50-5.90) M/uL Hgb (13.0-17.0) g/dL Hct (38.0-50.0) % MCV (80.0-98.0) fL MCH (27.0-32.0) pg MCHC (31.0-37.0) g/dL RDW Std Deviation (28.0-62.0) fl RDW Coeff of Carol (11.0-15.0) % Plt Count (150-400) K/uL MPV (7.40-12.00) fL Neut % (Auto) (48.0-80.0) % Lymph % (Auto) (16.0-40.0) % [place] % (Auto) (0.0-15.0) % Eos % (Auto) (0.0-7.0) % Baso % (Auto) (0.0-1.5) % Neut # (Auto) (1.4-5.7) K/uL Lymph # (Auto) (0.6-2.4) K/uL [place] # (Auto) (0.0-0.8) K/uL Eos # (Auto) (0.0-0.7) K/uL Baso # (Auto) (0.0-0.1) K/uL Nucleated RBC % /100WBC Nucleated RBCs # K/uL INR 3.05 Lactate (0.20-2.00) mmol/L Sodium (136-148) mmol/L Potassium (3.5-5.1) mmol/L Chloride (98-107) mmol/L Carbon Dioxide (21.0-32.0) mmol/L BUN (7.0-18.0) mg/dL Creatinine (0.8-1.3) mg/dL Est Cr Clr Drug Dosing mL/min Estimated GFR (MDRD) ml/min Glucose (74-106) mg/dL Calcium (8.5-10.1) mg/dL Magnesium 1.3 L (1.8-2.4) mg/dL Total Bilirubin (0.2-1.0) mg/dL AST (15-37) IU/L ALT (14-63) IU/L Alkaline Phosphatase (46-116) U/L Troponin I (0.000-0.056) ng/mL B-Natriuretic Peptide (<100) PG/ML Total Protein (6.4-8.2) g/dL Albumin (3.4-5.0) g/dL Globulin (2.6-4.0) g/dL Albumin/Globulin Ratio (0.9-1.6) Lipase (73-393) U/L Urine Color YELLOW Urine Appearance CLEAR Urine pH 5.5 (5.0-8.0) Ur Specific Gap 1.020 (1.001-1.035) Urine Protein NEGATIVE (NEGATIVE) mg/dL Urine Glucose (UA) NEGATIVE (NEGATIVE) mg/dL Urine Ketones NEGATIVE (NEGATIVE) mg/dL Urine Occult Blood NEGATIVE (NEGATIVE) Urine Nitrite NEGATIVE (NEGATIVE) Urine Bilirubin NEGATIVE (NEGATIVE) Urine Urobilinogen 0.2 (<2.0) EU/dL Ur Leukocyte Esterase NEGATIVE (NEGATIVE) Result Diagrams: 09/26/18 07:18 09/26/18 07:18 [place] Results Last 24 hrs: Microbiology 09/25/18 19:46 Influenza Type A Antigen Screen - Final Nasopharyngeal Swab NEGATIVE INFLUENZA A VIRUS AG Influenza Type B Antigen Screen - Final NEGATIVE INFLUENZA B VIRUS AG 09/25/18 19:46 Group A Streptococcus Rapid Screen - Final Throat NEGATIVE STREP A SCREEN 09/25/18 19:34 Anaerobic Blood Culture - Final Blood - Venous - Lab Draw Problem List Initiated/Reviewed/Updated: Yes Orders Last 24hrs: Active Orders 24 hr Category Date Time Status Admission Status [Patient Status] [ADT] Stat ADT 09/25/18 21:44 Active Antiembolic Devices [RC] PER UNIT ROUTINE Care 09/26/18 00:15 Active Communication Order [RC] ROUTINE Care 09/26/18 09:10 Active EKG Documentation Completion [RC] STAT Care 09/25/18 19:08 Active Oxygen Therapy [RC] PRN Care 09/26/18 00:14 Active RT Aerosol Therapy [RC] ASDIRECTED Care 09/25/18 19:24 Active RT Aerosol Therapy [RC] ASDIRECTED Care 09/26/18 00:15 Active Telemetry Monitoring [Cardiac Monitoring] [RC] Q8H Care 09/25/18 22:32 Active VTE/DVT Education [RC] PER UNIT ROUTINE Care 09/26/18 00:14 Active Vital Signs [RC] Q4H Care 09/26/18 00:14 Active Regular Diet [DIET] Diet 09/26/18 Breakfast Active Chest 2V [CR] Routine Exams 09/26/18 12:13 Taken CULTURE BLOOD [BC] Stat Lab 09/25/18 19:20 Received CULTURE BLOOD [BC] Stat Lab 09/25/18 19:34 Results CULTURE STREP A CONFIRMATION [RM] Stat Lab 09/25/18 19:46 Results STREP SCRN A RAPID W CULT CONF [RM] Stat Lab 09/25/18 19:46 Results UA RFX PILLO AND CULT IF INDIC [URIN] Stat Lab 09/26/18 07:02 Ordered Albuterol/Ipratropium [DuoNeb 3.0-0.5 MG/3 ML] Med 09/26/18 00:12 Active 3 ml NEB Q4H PRN Albuterol/Ipratropium [DuoNeb 3.0-0.5 MG/3 ML] Med 09/26/18 06:00 Active 3 ml NEB Q6HRRT Aspirin Med 09/26/18 09:00 Active 81 mg PO DAILY Azithromycin [Zithromax] 500 mg Med 09/26/18 10:22 Active Sodium Chloride 0.9% [Normal Saline] 250 ml IV Q24H Losartan [Cozaar] Med 09/26/18 09:00 Active 50 mg PO DAILY Magnesium Sulfate/Water [Magnesium Sulfate 4 GM in Med 09/26/18 11:12 Active Water 100 ML] 4 gm Premix Bag 1 bag IV ONETIME Metoprolol Succinate [Toprol XL] Med 09/26/18 09:00 Active 12.5 mg PO DAILY Propafenone [Rythmol] Med 09/26/18 06:00 Active 150 mg PO TID@0600,1200,2100 Rosuvastatin [Crestor] Med 09/26/18 21:00 Active 20 mg PO BEDTIME Sodium Chloride 0.9% [Normal Saline] 1,000 ml Med 09/25/18 19:30 Active IV STAT Warfarin [Coumadin] Med 09/28/18 14:00 Active 2.5 mg PO MoFr@1400 amLODIPine [Norvasc] Med 09/26/18 09:00 Active 5 mg PO DAILY cefTRIAXone [Rocephin in Dextrose,Iso-Osm 1 GM/50 ML] 1 Med 09/26/18 00:00 Active gm Premix Bag 1 bag IV Q24H Blood Culture x2 Reflex Set [OM.PC] Stat Oth 09/25/18 19:09 Ordered Sequential Compression Device [OM.PC] Per Unit Routine Oth 09/26/18 00:15 Ordered Resuscitation Status Routine Resus Stat 09/26/18 00:14 Ordered Medication Orders Albuterol/Ipratropium (Duoneb 3.0-0.5 Mg/3 Ml) 3 ml NEB Q4H PRN PRN Reason: SOB/Wheezing Albuterol/Ipratropium (Duoneb 3.0-0.5 Mg/3 Ml) 3 ml NEB Q6HRRT [facility] Last Admin: 09/26/18 11:49 Dose: 3 ml Admin: 09/26/18 05:51 Dose: 3 ml Amlodipine Besylate (Norvasc) 5 mg PO DAILY [facility] Last Admin: 09/26/18 08:12 Dose: 5 mg Aspirin (Aspirin) 81 mg PO DAILY [facility] Last Admin: 09/26/18 08:14 Dose: 81 mg Sodium Chloride (Normal Saline) 1,000 mls @ 125 mls/hr IV STAT [facility] Last Admin: 09/26/18 05:05 Dose: 125 mls/hr Infusion: 09/26/18 03:31 Dose: 125 mls/hr Admin: 09/25/18 19:31 Dose: 125 mls/hr Ceftriaxone Sodium/Dextrose 1 (gm/ Premix) 50 mls @ 100 mls/hr IV Q24H [facility] Last Admin: 09/26/18 00:44 Dose: 100 mls/hr Azithromycin 500 mg/ Sodium (Chloride) 250 mls @ 250 mls/hr IV Q24H [facility] Last Admin: 09/26/18 10:58 Dose: 250 mls/hr Magnesium Sulfate 4 gm/ Premix 100 mls @ 25 mls/hr IV ONETIME ONE Stop: 09/26/18 15:11 Last Admin: 09/26/18 12:10 Dose: 25 mls/hr Losartan Potassium (Cozaar) 50 mg PO DAILY [facility] Last Admin: 09/26/18 08:12 Dose: 50 mg Metoprolol Succinate (Toprol Xl) 12.5 mg PO DAILY [facility] Last Admin: 09/26/18 08:13 Dose: 12.5 mg Propafenone HCl (Rythmol) 150 mg PO TID@0600,1200,2100 [facility] Last Admin: 09/26/18 12:11 Dose: 150 mg Admin: 09/26/18 06:07 Dose: 150 mg Rosuvastatin Calcium (Crestor) 20 mg PO BEDTIME [facility] Warfarin Sodium (Coumadin) 2.5 mg PO MoFr@1400 [facility] Assessment/Plan Comment:: This is a 67-year-old male presenting with hypoxemia, shortness of breath, cough , with a chest x-ray possibly indicating infectious process and acute exacerbation of COPD. Patient also has an elevation of his troponins likely secondary to demand ischemia in the setting of atrial fibrillation and acute exacerbation of COPD. -Patient to be placed on prednisone, DuoNeb nebs, treated with azithromycin and ceftriaxone for community-acquired pneumonia -Troponins have been trended have trended down. -Telemetry placed patient's resumption of medications from his anterior arrhythmia standpoint. -Shall repeat chest x-ray as indicated by radiology based on previous x-ray read.
[2018-09-26] MEDS: Acetaminophen 325 MG Tab PO PRN ×2 (15:21→22:16)
[2018-09-26] MEDS: Doxycycline 100 MG Cap PO SCH (20:41)
[2018-09-26] MEDS ORDERED: Rosuvastatin 10 MG Tab PO SCH (21:00)
[2018-09-27] MEDS: Albuterol/Ipratropium 3.0-0.5 MG/3 ML Neb Soln NEB SCH ×3 (00:33→11:06)
[2018-09-27] MEDS: cefTRIAXone 1 GM in Premix Bag 1 BAG IV SCH (00:33)
[2018-09-27 07:38] VITALS: BP 141/77
[2018-09-27] MEDS: Metoprolol Succinate 25 MG Tab.ER PO SCH (08:11)
[2018-09-27] MEDS: Aspirin 81 MG Tab.Chew PO SCH (08:11)
[2018-09-27] MEDS: amLODIPine 5 MG Tab PO SCH (08:11)
[2018-09-27] MEDS: Losartan 50 MG Tab PO SCH (08:11)
[2018-09-27] MEDS: Doxycycline 100 MG Cap PO SCH (08:11)
--- NOTE | 2018-09-27 11:08 | PCM.DCSUM1 ---
<Nabil Norwood Z - Last Filed: 09/27/18 10:56> Discharge Summary - Hospital Course HPI Initial Comments: Discharge Summary Date of admission: 09/26/18 Date of discharge: 09/27/18 Admitting diagnosis: #1. Acute exacerbation of COPD with community-acquired pneumonia #2. Elevated troponin secondary to atrial fibrillation and increased cardiac demand #3. #4. #5. Discharge diagnoses: #1. Acute exacerbation of COPD now resolved community-acquired pneumonia resolving #2. Troponins now normalized, likely increased cardiac demand resulting increase in troponins Consultations: None Procedures: None Hospitalization course: Patient was admitted and started on his home medication for his atrial fibrillation as well as started on prednisone, DuoNeb's, IV antibiotics with azithromycin and ceftriaxone for his acute exacerbation of his COPD with concurrent community-acquired pneumonia. Patient was placed on telemetry and troponins were trended as his initial set of troponins were elevated however they trended down with his third troponin being within normal limits. The thought was that the patient troponins were likely elevated due to demand ischemia in the setting of his atrial fibrillation and increased cardiac demand due to his infectious process. Patient did well with the interventions, on day 2 of admission his azithromycin was discontinued and the patient was placed on doxycycline 100 mg by mouth twice a day. By day 3 of admission patient was on room air, stable and was ready to be discharged. Patient was discharged with the resumption of his home medications along with the addition of doxycycline 100 mg by mouth twice a day for 6 days, as well as prednisone 20 mg daily for the next 3 days after which patient can resume his regular dose of 5 mg prednisone daily. 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 Patient is to also have a follow-up appointment with his primary care provider. Diagnosis: Stroke: No Modified Ismael Scale: No Symptoms at All Modified Ismael Scale Score: 0 - Discharge Data Discharge Date: 09/27/18 Discharge Disposition: Home, Self-Care 01 Condition: Fair - Patient Instructions Diet: Heart Healthy Diet Activity: As Tolerated Driving: Do Not Drive Showering/Bathing: May Shower Notify Provider of: Fever, Increased Pain, Swelling and Redness, Nausea and/or Vomiting - Discharge Plan Prescriptions/Med Rec: Doxycycline [Vibramycin] 100 mg PO Q12HR 6 Days #12 cap predniSONE [Prednisone] 20 mg PO DAILY 3 Days #3 tablet Home Medications: Home Meds Albuterol/Ipratropium [Combivent Respimat] 1 puff INH BID 08/21/16 [History] Aspirin 81 mg PO DAILY 08/21/16 [History] Cholecalciferol (Vitamin D3) [D3-2000] 2,000 unit PO DAILY 08/21/16 [History] Colchicine 0.6 mg PO DAILY 08/21/16 [History] Colestipol [Colestipol HCl] 4 gm PO BID 08/21/16 [History] Fluticasone/Salmeterol [Advair Diskus 100-50] 1 puff INH BID 08/21/16 [History] Losartan [Cozaar] 50 mg PO DAILY 08/21/16 [History] Magnesium Chloride [Slow-Mag] 4 tab PO TID 08/21/16 [History] Metoprolol Succinate [Toprol XL] 12.5 mg PO DAILY 08/21/16 [History] [place]-3/DHA/Epa/Fish Oil [Fish Oil 1,000 mg Softgel] 1 each PO DAILY 08/21/16 [ History] Propafenone [Rythmol] 150 mg PO Q8H 08/21/16 [History] Rosuvastatin [Crestor] 20 mg PO BEDTIME 08/21/16 [History] Warfarin [Coumadin] 2.5 mg PO ASDIRECTED 08/21/16 [History] Warfarin [Coumadin] 5 mg PO ASDIRECTED 08/21/16 [History] amLODIPine [Norvasc] 5 mg PO DAILY 08/21/16 [History] Acetaminophen [Tylenol] 650 mg PO Q4H PRN #0 tablet 08/23/16 [Rx] Albuterol/Ipratropium [DuoNeb 3.0-0.5 MG/3 ML] 3 ml NEB Q4H PRN #1 box 08/23/16 [Rx] predniSONE [Prednisone] 5 mg PO WITHBREAKFAST #0 08/23/16 [Rx] Levalbuterol HCl 1.25 mg NEB QID PRN 09/25/18 [History] Doxycycline [Vibramycin] 100 mg PO Q12HR 6 Days #12 cap 09/27/18 [Rx] predniSONE [Prednisone] 20 mg PO DAILY 3 Days #3 tablet 09/27/18 [Rx] Patient Handouts: Chronic Obstructive Pulmonary Disease, [id number], Doxycycline tablets or capsules, Prednisone tablets Referrals: Brock Bruce [Primary Care Provider] - 10/03/18 9:30 am - Discharge Summary/Plan Comment DC Time >30 min.: No - Patient Data Vitals - Most Recent: Last Vital Signs Temp 36.6 C 09/27/18 07:37 Pulse 71 09/27/18 08:11 Resp 16 09/27/18 07:37 BP 141/77 H 09/27/18 08:11 Pulse Ox 94 L 09/27/18 07:37 Weight - Most Recent: 87.634 kg I&O - Last 24 hours: Intake & Output 09/26/18 09/27/18 09/27/18 22:59 06:59 14:59 Intake Total 810 780 Output Total 1150 950 Balance -340 -170 Lab Results - Last 24 hrs: Laboratory Results - last 24 hr 09/27/18 09/27/18 Range/Units 05:36 05:36 WBC 11.79 H (4.0-11.0) K/uL RBC 4.11 L (4.50-5.90) M/uL Hgb 13.4 (13.0-17.0) g/dL Hct 41.3 (38.0-50.0) % MCV 100.5 H (80.0-98.0) fL MCH 32.6 H (27.0-32.0) pg MCHC 32.4 (31.0-37.0) g/dL RDW Std Deviation 57.6 (28.0-62.0) fl RDW Coeff of Carol 16 H (11.0-15.0) % Plt Count 237 (150-400) K/uL MPV 10.70 (7.40-12.00) fL Neut % (Auto) 78.1 (48.0-80.0) % Lymph % (Auto) 13.5 L (16.0-40.0) % [place] % (Auto) 8.0 (0.0-15.0) % Eos % (Auto) 0.3 (0.0-7.0) % Baso % (Auto) 0.1 (0.0-1.5) % Neut # (Auto) 9.2 H (1.4-5.7) K/uL Lymph # (Auto) 1.6 (0.6-2.4) K/uL [place] # (Auto) 0.9 H (0.0-0.8) K/uL Eos # (Auto) 0.0 (0.0-0.7) K/uL Baso # (Auto) 0.0 (0.0-0.1) K/uL Nucleated RBC % 0.1 /100WBC Nucleated RBCs # 0 K/uL Sodium 139 (136-148) mmol/L Potassium 4.7 (3.5-5.1) mmol/L Chloride 109 H (98-107) mmol/L Carbon Dioxide 23.5 (21.0-32.0) mmol/L BUN 27 H (7.0-18.0) mg/dL Creatinine 1.4 H (0.8-1.3) mg/dL Est Cr Clr Drug Dosing 50.50 mL/min Estimated GFR (MDRD) 50.4 ml/min Glucose 105 (74-106) mg/dL Calcium 8.2 L (8.5-10.1) mg/dL Magnesium 1.9 (1.8-2.4) mg/dL ANGELICA Results - Last 24 hrs: Microbiology 09/25/18 19:46 Quick Strep Confirmation Culture - Final Throat NO GROUP A STREP ISOLATED Group A Streptococcus Rapid Screen - Final NEGATIVE STREP A SCREEN 09/25/18 19:34 Aerobic Blood Culture - Preliminary Blood - Venous - Lab Draw NO GROWTH AFTER 1 DAY Anaerobic Blood Culture - Final 09/25/18 19:20 Aerobic Blood Culture - Preliminary Blood - Venous - Iv Start NO GROWTH AFTER 1 DAY Anaerobic Blood Culture - Preliminary NO GROWTH AFTER 1 DAY Med Orders - Current: Current Medications Acetaminophen (Tylenol) 650 mg PO Q4H PRN PRN Reason: Pain Last Admin: 09/26/18 22:16 Dose: 650 mg Albuterol/Ipratropium (Duoneb 3.0-0.5 Mg/3 Ml) 3 ml NEB Q4H PRN PRN Reason: SOB/Wheezing Albuterol/Ipratropium (Duoneb 3.0-0.5 Mg/3 Ml) 3 ml NEB Q6HRRT [facility] Last Admin: 09/27/18 06:20 Dose: 3 ml Amlodipine Besylate (Norvasc) 5 mg PO DAILY [facility] Last Admin: 09/27/18 08:11 Dose: 5 mg Aspirin (Aspirin) 81 mg PO DAILY [facility] Last Admin: 09/27/18 08:11 Dose: 81 mg Colestipol HCl (Colestipol Hcl) 4 gm PO BID [facility] Last Admin: 09/27/18 08:24 Dose: 4 gm Doxycycline Hyclate (Vibramycin) 100 mg PO Q12HR [facility] Last Admin: 09/27/18 08:11 Dose: 100 mg Ceftriaxone Sodium/Dextrose 1 (gm/ Premix) 50 mls @ 100 mls/hr IV Q24H [facility] Last Admin: 09/27/18 00:33 Dose: 100 mls/hr Losartan Potassium (Cozaar) 50 mg PO DAILY [facility] Last Admin: 09/27/18 08:11 Dose: 50 mg Metoprolol Succinate (Toprol Xl) 12.5 mg PO DAILY [facility] Last Admin: 09/27/18 08:11 Dose: 12.5 mg Propafenone HCl (Rythmol) 150 mg PO TID@0600,1200,2100 [facility] Last Admin: 09/27/18 06:32 Dose: 150 mg Rosuvastatin Calcium (Crestor) 20 mg PO BEDTIME [facility] Last Admin: 09/26/18 20:41 Dose: 20 mg Warfarin Sodium (Coumadin) 2.5 mg PO MoFr@1400 [facility] Discontinued Medications Albuterol/Ipratropium (Duoneb 3.0-0.5 Mg/3 Ml) 3 ml NEB ONETIME ONE Stop: 09/25/18 19:25 Last Admin: 09/25/18 19:31 Dose: 3 ml Sodium Chloride (Normal Saline) 1,000 mls @ 125 mls/hr IV STAT [facility] Last Admin: 09/26/18 05:05 Dose: 125 mls/hr Azithromycin 500 mg/ Sodium (Chloride) 250 mls @ 250 mls/hr IV Q24H [facility] Last Admin: 09/26/18 01:20 Dose: 250 mls/hr Azithromycin 500 mg/ Sodium (Chloride) 250 mls @ 250 mls/hr IV Q24H [facility] Last Admin: 09/26/18 10:58 Dose: 250 mls/hr Magnesium Sulfate 4 gm/ Premix 100 mls @ 25 mls/hr IV ONETIME ONE Stop: 09/26/18 15:11 Last Admin: 09/26/18 12:10 Dose: 25 mls/hr Methylprednisolone Sodium Succinate (Solu-Medrol) 125 mg IVPUSH ONETIME ONE Stop: 09/25/18 19:25 Last Admin: 09/25/18 19:31 Dose: 125 mg Non-Formulary Medication (Magnesium Chloride [Slow-Mag]) 4 tab PO TID [facility] Last Admin: 09/26/18 11:47 Dose: Not Given Propafenone HCl (Rythmol) 150 mg PO Q8H [facility] Last Admin: 09/26/18 00:42 Dose: Not Given Warfarin Sodium (Coumadin) 2.5 mg PO DAILY@1400 ONE Stop: 09/26/18 14:01 Last Admin: 09/26/18 13:37 Dose: 2.5 mg <Ryan Navarro J - Last Filed: 10/01/18 13:59> - Patient Data Vitals - Most Recent: Last Vital Signs Temp 36.6 C 09/27/18 07:37 Pulse 71 09/27/18 11:21 Resp 16 09/27/18 07:37 BP 141/77 H 09/27/18 08:11 Pulse Ox 94 L 09/27/18 07:37 ANGELICA Results - Last 24 hrs: Microbiology 09/25/18 19:34 Aerobic Blood Culture - Final Blood - Venous - Lab Draw NO GROWTH AFTER 5 DAYS Anaerobic Blood Culture - Final 09/25/18 19:20 Aerobic Blood Culture - Final Blood - Venous - Iv Start NO GROWTH AFTER 5 DAYS Anaerobic Blood Culture - Final NO GROWTH AFTER 5 DAYS Med Orders - Current: Current Medications Discontinued Medications Acetaminophen (Tylenol) 650 mg PO Q4H PRN PRN Reason: Pain Last Admin: 09/26/18 22:16 Dose: 650 mg Albuterol/Ipratropium (Duoneb 3.0-0.5 Mg/3 Ml) 3 ml NEB ONETIME ONE Stop: 09/25/18 19:25 Last Admin: 09/25/18 19:31 Dose: 3 ml Albuterol/Ipratropium (Duoneb 3.0-0.5 Mg/3 Ml) 3 ml NEB Q4H PRN PRN Reason: SOB/Wheezing Albuterol/Ipratropium (Duoneb 3.0-0.5 Mg/3 Ml) 3 ml NEB Q6HRRT [facility] Last Admin: 09/27/18 11:06 Dose: 3 ml Amlodipine Besylate (Norvasc) 5 mg PO DAILY [facility] Last Admin: 09/27/18 08:11 Dose: 5 mg Aspirin (Aspirin) 81 mg PO DAILY [facility] Last Admin: 09/27/18 08:11 Dose: 81 mg Colestipol HCl (Colestipol Hcl) 4 gm PO BID [facility] Last Admin: 09/27/18 08:24 Dose: 4 gm Doxycycline Hyclate (Vibramycin) 100 mg PO Q12HR [facility] Last Admin: 09/27/18 08:11 Dose: 100 mg Sodium Chloride (Normal Saline) 1,000 mls @ 125 mls/hr IV STAT [facility] Last Admin: 09/26/18 05:05 Dose: 125 mls/hr Azithromycin 500 mg/ Sodium (Chloride) 250 mls @ 250 mls/hr IV Q24H [facility] Last Admin: 09/26/18 01:20 Dose: 250 mls/hr Ceftriaxone Sodium/Dextrose 1 (gm/ Premix) 50 mls @ 100 mls/hr IV Q24H [facility] Last Admin: 09/27/18 00:33 Dose: 100 mls/hr Azithromycin 500 mg/ Sodium (Chloride) 250 mls @ 250 mls/hr IV Q24H [facility] Last Admin: 09/26/18 10:58 Dose: 250 mls/hr Magnesium Sulfate 4 gm/ Premix 100 mls @ 25 mls/hr IV ONETIME ONE Stop: 09/26/18 15:11 Last Admin: 09/26/18 12:10 Dose: 25 mls/hr Losartan Potassium (Cozaar) 50 mg PO DAILY [facility] Last Admin: 09/27/18 08:11 Dose: 50 mg Methylprednisolone Sodium Succinate (Solu-Medrol) 125 mg IVPUSH ONETIME ONE Stop: 09/25/18 19:25 Last Admin: 09/25/18 19:31 Dose: 125 mg Metoprolol Succinate (Toprol Xl) 12.5 mg PO DAILY [facility] Last Admin: 09/27/18 08:11 Dose: 12.5 mg Non-Formulary Medication (Magnesium Chloride [Slow-Mag]) 4 tab PO TID [facility] Last Admin: 09/26/18 11:47 Dose: Not Given Propafenone HCl (Rythmol) 150 mg PO Q8H [facility] Last Admin: 09/26/18 00:42 Dose: Not Given Propafenone HCl (Rythmol) 150 mg PO TID@0600,1200,2100 [facility] Last Admin: 09/27/18 11:21 Dose: 150 mg Rosuvastatin Calcium (Crestor) 20 mg PO BEDTIME [facility] Last Admin: 09/26/18 20:41 Dose: 20 mg Warfarin Sodium (Coumadin) 2.5 mg PO MoFr@1400 [facility] Warfarin Sodium (Coumadin) 2.5 mg PO DAILY@1400 ONE Stop: 09/26/18 14:01 Last Admin: 09/26/18 13:37 Dose: 2.5 mg - Free Text/Narrative Note: I have seen and evaluated the patient. I have discussed findings and treatment plan with the resident. I agree with the assessment and plan outlined in the following note.
--- NOTE | 2018-09-27 11:19 | CR ---
EXAM DATE: 09/25/18 PATIENT'S AGE: 67 Patient: DIANA FLORES Facility: [facility] Site . Site : [id number] Study: XRay-Chest [id number]/6/2019 12:46:47 PM Ordering Physician: Melanie Davis Final Report: INDICATION: Fever and hypoxia. TECHNIQUE: Chest 2 views COMPARISON: September 25, 2018. FINDINGS: Cardiovascular and mediastinum: Heart size and vasculature are normal in caliber and appearance. Lungs and pleural spaces: Lungs are clear. No sign of infiltrate or mass. No sign of pleural effusion. No pneumothorax. Nipple markers correlate with small symmetrical nodular densities in both lung bases. No suspicious nodules. Bones and soft tissues: No significant findings. IMPRESSION: Unremarkable chest. No sign of nodule or infiltrate. Dictated by Reymundo Harden MD @ Sep 26 2018 1:18PM Signed by: Reymundo Harden MD @09/26/2018 1:21:01 PM (Electronic Signature) Report Signed by Proxy. [facility]ITAL[facility]ley
[2018-09-28] MEDS ORDERED: Warfarin 2.5 MG Tab PO SCH (14:00)
== END 2018-09-27 12:25 | disposition home or self-care (01) ==
LOC: MW.ED 18:57 → MW.MS 21:44
PROVIDERS: ADMIT Internal Medicine; ATTEND Internal Medicine
DX: J44.1 Chronic obstructive pulmonary disease with (acute) exacerbation (principal); J44.0 Chronic obstructive pulmonary disease with (acute) lower respiratory infection; J18.9 Pneumonia, unspecified organism; I48.91 Unspecified atrial fibrillation; R09.02 Hypoxemia; I10 Essential (primary) hypertension; M35.3 Polymyalgia rheumatica; Z88.6 Allergy status to analgesic agent; Z88.8 Allergy status to other drugs, medicaments and biological substances; Z87.891 Personal history of nicotine dependence; Z83.6 Family history of other diseases of the respiratory system; Z79.82 Long term (current) use of aspirin; Z79.51 Long term (current) use of inhaled steroids; Z79.01 Long term (current) use of anticoagulants; Z79.52 Long term (current) use of systemic steroids; Z79.899 Other long term (current) drug therapy
CPT/HCPCS: 36415; 71045; 71046; 74176; 80048; 80053; 81003; 83605; 83690; 83735; 83880; 84484; 85025; 85610; 87040; 87081; 87804; 87880; 93005; 94640; 96365; 96366; 96367; 96375; 96376; 99285; A9270; G0378; J0456; J0696; J2930; J3475; J7040; J7050; 96374; J7620-GY

== ENCOUNTER 2019-03-03 12:57 | Emergency (ER) | payer MEDICARE, OTHER ==
[2019-03-03] MEDS ORDERED: Sodium Chloride 0.9% 10 ML Syringe FLUSH PRN (13:02)
[2019-03-03] MEDS ORDERED: Sodium Chloride 0.9% 2.5 ML Syringe FLUSH PRN (13:02)
--- NOTE | 2019-03-03 13:04 | EDM.PDOC ---
ED HPI GENERAL MEDICAL PROBLEM - General Chief Complaint: Cardiovascular Problem Stated Complaint: RETAINING WATER Time Seen by Provider: 03/03/19 13:00 Source of Information: Reports: Patient History Limitations: Reports: No Limitations - History of Present Illness INITIAL COMMENTS - FREE TEXT/NARRATIVE: History of present illness: []Patient has been having bilateral leg swelling for several months that is progressively worsening. The swelling is worse at night and the day previous with elevation of his legs. Denies having any worsening shortness of breath, chest pain or calf pain. Patient has a history of A. fib, COPD, DVT and placement of renal and femoral artery stents. Review of systems: As per history of present illness and below otherwise all systems reviewed and negative. Past medical history: As per history of present illness and as reviewed below otherwise noncontributory. Surgical history: As per history of present illness and as reviewed below otherwise noncontributory. Social history: No reported history of drug or alcohol abuse. Family history: As per history of present illness and as reviewed below otherwise noncontributory. Physical exam: General: Well developed, well nourished in NAD HEENT: Atraumatic, normocephalic, pupils reactive, negative for conjunctival pallor or scleral icterus, mucous membranes moist, throat clear, neck supple, nontender, trachea midline. Lungs: Clear to auscultation, breath sounds equal bilaterally, chest nontender. Heart: S1S2, regular, negative for clicks, rubs, or JVD. Distal pulses palpable , 1+ pitting edema bilateral lower extremities Abdomen: NABS, Soft, nondistended, nontender. Negative for masses or hepatosplenomegaly. Negative for costovertebral tenderness. Pelvis: Stable nontender. Genitourinary: Deferred. Rectal: Deferred. Extremities: Atraumatic, negative for cords or calf pain. Neurovascular unremarkable. Neuro: Awake, alert, oriented. Cranial nerves II through XII unremarkable. Cerebellum unremarkable. Motor and sensory unremarkable throughout. Exam nonfocal. Skin:warm and dry Diagnostics: EKG, CBC, chemistry, BNP, chest x-ray, UA Therapeutics: None ED Course: Stable Impression: Dependent edema Prescriptions: None Plan: Take meds as directed, follow up with your primary care physician, return to ER if symptoms worsen or change. Definitive disposition and diagnosis as appropriate pending reevaluation and review of above. - Related Data Allergies Allergy/AdvReac Type Severity Reaction Status Date / Time alendronate sodium Allergy Diarrhea Verified 03/03/19 13:08 [From Fosamax] atorvastatin [From Lipitor] Allergy Hives Verified 03/03/19 13:08 ibuprofen Allergy Cannot Verified 03/03/19 13:08 Remember lisinopril Allergy Hives Verified 03/03/19 13:08 Home Meds: Home Meds Aspirin 81 mg PO DAILY 08/21/16 [History] Cholecalciferol (Vitamin D3) [D3-2000] 2,000 unit PO DAILY 08/21/16 [History] Colchicine 0.6 mg PO DAILY 08/21/16 [History] Colestipol [Colestipol HCl] 4 gm PO BID 08/21/16 [History] Fluticasone/Salmeterol [Advair Diskus 100-50] 1 puff INH BID 08/21/16 [History] Losartan [Cozaar] 50 mg PO DAILY 08/21/16 [History] Magnesium Chloride [Slow-Mag] 4 tab PO TID 08/21/16 [History] Metoprolol Succinate [Toprol XL] 25 mg PO DAILY 08/21/16 [History] [place]-3/DHA/Epa/Fish Oil [Fish Oil 1,000 mg Softgel] 1 each PO DAILY 08/21/16 [ History] Warfarin [Coumadin] 5 mg PO ASDIRECTED 08/21/16 [History] amLODIPine [Norvasc] 5 mg PO DAILY 08/21/16 [History] Albuterol/Ipratropium [DuoNeb 3.0-0.5 MG/3 ML] 3 ml NEB Q4H PRN #1 box 08/23/16 [Rx] predniSONE [Prednisone] 5 mg PO WITHBREAKFAST #0 08/23/16 [Rx] Levalbuterol HCl 1.25 mg NEB QID PRN 09/25/18 [History] Past Medical History HEENT History: Reports: Cataract, Hard of Hearing, Impaired Vision Cardiovascular History: Reports: Afib, Hypertension, Stents Respiratory History: Reports: COPD Other Respiratory History: Emphesema, with activity Gastrointestinal History: Denies: Cirrhosis Other Gastrointestinal History: Pancreatic cancer, partial removal ("tail end") , abdominal hernia Genitourinary History: Reports: Chronic Renal Insuffiency Musculoskeletal History: Reports: Fracture, Gout, Other (See Below) Other Musculoskeletal History: Polymyalgia rheumatica. Fx to (L) collarbone, thumb (L), toe (L) Neurological History: Reports: Other (See Below) Other Neuro History: brain bleed Psychiatric History: Reports: None Hematologic History: Reports: None Immunologic History: Reports: None Oncologic (Cancer) History: Reports: Other (See Below) Other Oncologic History: PMR Dermatologic History: Reports: Other (See Below) Other Dermatologic History: Basal cell carcinoma to nose - Infectious Disease History Infectious Disease History: Reports: Chicken Pox - Past Surgical History Head Surgeries/Procedures: Reports: None GI Surgical History: Reports: Other (See Below) Other GI Surgeries/Procedures: pancreatic cancer Male Surgical History: Reports: Other (See Below) Endocrine Surgical History: Reports: Other (See Below) Musculoskeletal Surgical History: Reports: Other (See Below) Dermatological Surgical History: Reports: Skin Biopsy Social & Family History - Family History Family Medical History: Noncontributory Cardiac: Reports: [place] Respiratory: Reports: COPD Oncologic: Reports: Lung - Caffeine Use Caffeine Use: Reports: Coffee, Other Other Caffeine Use: usually drink de-caf coffee ED ROS GENERAL - Review of Systems Review Of Systems: See Below ED EXAM, GENERAL - Physical Exam Exam: See Below Course - Vital Signs Last Recorded V/S: Last Vital Signs Temp 97.3 F 03/03/19 13:11 Pulse 54 L 03/03/19 14:14 Resp 18 03/03/19 14:14 BP 116/72 03/03/19 14:14 Pulse Ox 96 03/03/19 14:14 - Orders/Labs/Meds Orders: Active Orders 24 hr Category Date Time Status EKG Documentation Completion [RC] STAT Care 03/03/19 13:02 Active Sodium Chloride 0.9% [Saline Flush] Med 03/03/19 13:02 Active 10 ml FLUSH ASDIRECTED PRN Sodium Chloride 0.9% [Saline Flush] Med 03/03/19 13:02 Active 2.5 ml FLUSH ASDIRECTED PRN Saline Lock Insert [OM.PC] Stat Oth 03/03/19 13:01 Ordered Medication Orders Sodium Chloride (Saline Flush) 10 ml FLUSH ASDIRECTED PRN PRN Reason: Keep Vein Open Last Admin: 03/03/19 13:43 Dose: 10 ml Sodium Chloride (Saline Flush) 2.5 ml FLUSH ASDIRECTED PRN PRN Reason: Keep Vein Open Last Admin: 03/03/19 13:43 Dose: 2.5 ml Labs: Laboratory Tests 03/03/19 03/03/19 03/03/19 Range/Units 13:15 13:15 13:15 WBC 8.33 (4.0-11.0) K/uL RBC 4.32 L (4.50-5.90) M/uL Hgb 14.6 (13.0-17.0) g/dL Hct 43.8 (38.0-50.0) % MCV 101.4 H (80.0-98.0) fL MCH 33.8 H (27.0-32.0) pg MCHC 33.3 (31.0-37.0) g/dL RDW Std Deviation 57.1 (28.0-62.0) fl RDW Coeff of Carol 16 H (11.0-15.0) % Plt Count 213 (150-400) K/uL MPV 10.40 (7.40-12.00) fL Neut % (Auto) 69.6 (48.0-80.0) % Lymph % (Auto) 19.8 (16.0-40.0) % [place] % (Auto) 7.8 (0.0-15.0) % Eos % (Auto) 2.6 (0.0-7.0) % Baso % (Auto) 0.2 (0.0-1.5) % Neut # (Auto) 5.8 H (1.4-5.7) K/uL Lymph # (Auto) 1.7 (0.6-2.4) K/uL [place] # (Auto) 0.7 (0.0-0.8) K/uL Eos # (Auto) 0.2 (0.0-0.7) K/uL Baso # (Auto) 0.0 (0.0-0.1) K/uL Sodium 139 (136-148) mmol/L Potassium 4.6 (3.5-5.1) mmol/L Chloride 107 (98-107) mmol/L Carbon Dioxide 21.7 (21.0-32.0) mmol/L BUN 25 H (7.0-18.0) mg/dL Creatinine 1.7 H (0.8-1.3) mg/dL Est Cr Clr Drug Dosing TNP Estimated GFR (MDRD) 40.2 ml/min Glucose 103 (74-106) mg/dL Calcium 9.2 (8.5-10.1) mg/dL Total Bilirubin 0.6 (0.2-1.0) mg/dL AST 32 (15-37) IU/L ALT 52 (14-63) IU/L Alkaline Phosphatase 70 (46-116) U/L B-Natriuretic Peptide 79 (<100) PG/ML Total Protein 6.8 (6.4-8.2) g/dL Albumin 3.2 L (3.4-5.0) g/dL Globulin 3.6 (2.6-4.0) g/dL Albumin/Globulin Ratio 0.9 (0.9-1.6) Urine Color Urine Appearance Urine pH (5.0-8.0) Ur Specific [place] (1.001-1.035) Urine Protein (NEGATIVE) mg/dL Urine Glucose (UA) (NEGATIVE) mg/dL Urine Ketones (NEGATIVE) mg/dL Urine Occult Blood (NEGATIVE) Urine Nitrite (NEGATIVE) Urine Bilirubin (NEGATIVE) Urine Urobilinogen (<2.0) EU/dL Ur Leukocyte Esterase (NEGATIVE) Urine RBC (0-2/HPF) Urine WBC (0-5/HPF) Ur Epithelial Cells (NONE-FEW) Urine Bacteria (NEGATIVE) 03/03/19 Range/Units 14:03 WBC (4.0-11.0) K/uL RBC (4.50-5.90) M/uL Hgb (13.0-17.0) g/dL Hct (38.0-50.0) % MCV (80.0-98.0) fL MCH (27.0-32.0) pg MCHC (31.0-37.0) g/dL RDW Std Deviation (28.0-62.0) fl RDW Coeff of [place] (11.0-15.0) % Plt Count (150-400) K/uL MPV (7.40-12.00) fL Neut % (Auto) (48.0-80.0) % Lymph % (Auto) (16.0-40.0) % [place] % (Auto) (0.0-15.0) % Eos % (Auto) (0.0-7.0) % Baso % (Auto) (0.0-1.5) % Neut # (Auto) (1.4-5.7) K/uL Lymph # (Auto) (0.6-2.4) K/uL [place] # (Auto) (0.0-0.8) K/uL Eos # (Auto) (0.0-0.7) K/uL Baso # (Auto) (0.0-0.1) K/uL Sodium (136-148) mmol/L Potassium (3.5-5.1) mmol/L Chloride (98-107) mmol/L Carbon Dioxide (21.0-32.0) mmol/L BUN (7.0-18.0) mg/dL Creatinine (0.8-1.3) mg/dL Est Cr Clr Drug Dosing Estimated GFR (MDRD) ml/min Glucose (74-106) mg/dL Calcium (8.5-10.1) mg/dL Total Bilirubin (0.2-1.0) mg/dL AST (15-37) IU/L ALT (14-63) IU/L Alkaline Phosphatase (46-116) U/L B-Natriuretic Peptide (<100) PG/ML Total Protein (6.4-8.2) g/dL Albumin (3.4-5.0) g/dL Globulin (2.6-4.0) g/dL Albumin/Globulin Ratio (0.9-1.6) Urine Color YELLOW Urine Appearance CLEAR Urine pH 5.5 (5.0-8.0) Ur Specific [place] 1.020 (1.001-1.035) Urine Protein 30 H (NEGATIVE) mg/dL Urine Glucose (UA) NEGATIVE (NEGATIVE) mg/dL Urine Ketones NEGATIVE (NEGATIVE) mg/dL Urine Occult Blood TRACE-INTACT H (NEGATIVE) Urine Nitrite NEGATIVE (NEGATIVE) Urine Bilirubin NEGATIVE (NEGATIVE) Urine Urobilinogen 0.2 (<2.0) EU/dL Ur Leukocyte Esterase NEGATIVE (NEGATIVE) Urine RBC NONE SEEN (0-2/HPF) Urine WBC NONE SEEN (0-5/HPF) Ur Epithelial Cells RARE (NONE-FEW) Urine Bacteria NOT SEEN (NEGATIVE) Meds: Medications Generic Name Dose Route Start Last Admin Trade Name Freq PRN Reason Stop Dose Admin Sodium Chloride 10 ml 03/03/19 13:02 03/03/19 13:43 Saline Flush FLUSH 10 ml ASDIRECTED PRN Administration Keep Vein Open Sodium Chloride 2.5 ml 03/03/19 13:02 03/03/19 13:43 Saline Flush FLUSH 2.5 ml ASDIRECTED PRN Administration Keep Vein Open Departure - Departure Time of Disposition: 14:12 Disposition: Home, Self-Care 01 Condition: Good Clinical Impression: Dependent edema Referrals: PCP,None [Primary Care Provider] - Forms: ED Department Discharge Additional Instructions: The following information is given to patients seen in the emergency department who are being discharged to home. This information is to outline your options for follow-up care. We provide all patients seen in our emergency department with a follow-up referral. The need for follow-up, as well as the timing and circumstances, are variable depending upon the specifics of your emergency department visit. If you don't have a primary care physician on staff, we will provide you with a referral. We always advise you to contact your personal physician following an emergency department visit to inform them of the circumstance of the visit and for follow-up with them and/or the need for any referrals to a consulting specialist. The emergency department will also refer you to a specialist when appropriate. This referral assures that you have the opportunity for follow-up care with a specialist. All of these measure are taken in an effort to provide you with optimal care, which includes your follow-up. Under all circumstances we always encourage you to contact your private physician who remains a resource for coordinating your care. When calling for follow-up care, please make the office aware that this follow-up is from your recent emergency room visit. If for any reason you are refused follow-up, please contact the [facility] Emergency Department at and asked to speak to the emergency department charge nurse. Elevate legs above the level of her heart as much as possible, follow-up with your primary care [facility] [address] [place] [id number] - My Orders Last 24 Hours: My Active Orders 03/03/19 13:01 Saline Lock Insert [OM.PC] Stat 03/03/19 13:02 EKG Documentation Completion [RC] STAT Sodium Chloride 0.9% [Saline Flush] 10 ml FLUSH ASDIRECTED PRN Sodium Chloride 0.9% [Saline Flush] 2.5 ml FLUSH ASDIRECTED PRN - Assessment/Plan Last 24 Hours: My Active Orders 03/03/19 13:01 Saline Lock Insert [OM.PC] Stat 03/03/19 13:02 EKG Documentation Completion [RC] STAT Sodium Chloride 0.9% [Saline Flush] 10 ml FLUSH ASDIRECTED PRN Sodium Chloride 0.9% [Saline Flush] 2.5 ml FLUSH ASDIRECTED PRN
[2019-03-03 13:42] LABS: BLOOD UREA NITROGEN,BUN 25 mg/dL (7.0-18.0); CARBON DIOXIDE,CO2 21.7 mmol/L (21.0-32.0); CHLORIDE,CL 107 mmol/L (98-107); GLUCOSE RANDOM 103 mg/dL (74-106); POTASSIUM,K 4.6 mmol/L (3.5-5.1); SODIUM,NA 139 mmol/L (136-148)
--- NOTE | 2019-03-03 13:59 | CR ---
Indication: Pain. Shortness of breath. Technique: A single frontal view of the chest was obtained. Comparison: September 26, 2018. Findings: The heart is normal in size. The lungs are clear. No infiltrate, pleural effusion, or pneumothorax is identified. Impression: No acute cardiopulmonary process. Dictated by Ana Overton MD @ Mar 03 2019 1:58PM Signed by Dr. Ana Overton @ Mar 03 2019 1:59PM
[2019-03-03 15:03] VITALS: BP 113/62; PULSE 60
== END 2019-03-03 15:03 | disposition home or self-care (01) ==
LOC: MW.ED 12:57
DX: R60.9 Edema, unspecified (principal); I48.91 Unspecified atrial fibrillation; I10 Essential (primary) hypertension; Z79.82 Long term (current) use of aspirin; Z88.8 Allergy status to other drugs, medicaments and biological substances
CPT/HCPCS: 71045; 71045-26; 80053; 81001; 83880; 85025; 93005; 99283; 99284-25

== ENCOUNTER 2022-08-06 22:55 | Emergency (ER) | payer MEDICARE, OTHER ==
[2022-08-06] MEDS ORDERED: Aspirin 81 MG Tab.Chew PO ONE (23:10)
[2022-08-06] MEDS ORDERED: Albuterol/Ipratropium 3.0-0.5 MG/3 ML Neb Soln ONE (23:10)
[2022-08-06] MEDS ORDERED: methylPREDNISolone Sodium Succinate 125 MG/2 ML SDV IVPUSH ONE (23:10)
[2022-08-06] MEDS ORDERED: Albuterol/Ipratropium 3.0-0.5 MG/3 ML Neb Soln NEB ONE (23:10)
[2022-08-06] MEDS ORDERED: Famotidine 20 MG/2 ML SDV IVPUSH ONE (23:12)
[2022-08-06] MEDS ORDERED: Alum Hydro/Mag Hydro/Simeth XS 15 ML, Lidocaine 2% 5 ML PO ONE ×2 (23:12)
[2022-08-06 23:47] LABS: BLOOD UREA NITROGEN,BUN 22 mg/dL (7.0-18.0); CARBON DIOXIDE,CO2 19.3 mmol/L (21.0-32.0); CHLORIDE,CL 110 mmol/L (98-107); GLUCOSE RANDOM 117 mg/dL (74-106); POTASSIUM,K 4.1 mmol/L (3.5-5.1); SODIUM,NA 141 mmol/L (136-148)
[2022-08-06 23:51] LABS: ESTIMATED GFR 46 mL/min (>60)
[2022-08-07 00:23] LABS: CORONAVIRUS COVID-19 NAA POSITIVE (NEGATIVE); INFLUENZA A NAA NEGATIVE (NEGATIVE); INFLUENZA B NAA NEGATIVE (NEGATIVE)
[2022-08-07 01:53] VITALS: BP 127/74; PULSE 78
== END 2022-08-07 01:53 | disposition home or self-care (01) ==
LOC: MW.ED 22:55
DX: U07.1 COVID-19 (principal); J32.9 Chronic sinusitis, unspecified; I12.9 Hypertensive chronic kidney disease with stage 1 through stage 4 chronic kidney disease, or unspecified chronic kidney disease; N18.30 Chronic kidney disease, stage 3 unspecified; J43.9 Emphysema, unspecified; I25.10 Atherosclerotic heart disease of native coronary artery without angina pectoris; I48.91 Unspecified atrial fibrillation; Z88.8 Allergy status to other drugs, medicaments and biological substances; Z79.82 Long term (current) use of aspirin; Z79.01 Long term (current) use of anticoagulants; Z79.899 Other long term (current) drug therapy
CPT/HCPCS: 0240U; 36415; 71045; 80053; 82803; 83735; 83880; 84484; 85025; 85610; 85730; 86140; 93005; 96374; 96375; 99285; A9270; J2930; J3490; 93010; 99284; J7620-GY

== ENCOUNTER 2022-10-27 08:17 | Inpatient (IN) | payer MEDICARE, OTHER ==
[2022-10-27] MEDS ORDERED: Sodium Chloride 0.9% 2.5 ML Syringe FLUSH PRN (08:21)
[2022-10-27] MEDS ORDERED: Albuterol/Ipratropium 3.0-0.5 MG/3 ML Neb Soln NEB ONE (08:21)
[2022-10-27] MEDS ORDERED: Sodium Chloride 0.9% 10 ML Syringe FLUSH PRN (08:21)
[2022-10-27] MEDS ORDERED: Sodium Chloride 0.9% 1,000 ML IV ONE (08:23)
[2022-10-27] MEDS ORDERED: cefTRIAXone 1 GM in Sodium Chloride 0.9% 50 ML IV ONE (08:32)
[2022-10-27] MEDS ORDERED: Azithromycin 500 MG in Sodium Chloride 0.9% 250 ML IV ONE (08:34)
[2022-10-27 09:16] LABS: CORONAVIRUS COVID-19 NAA NEGATIVE (NEGATIVE); INFLUENZA A NAA NEGATIVE (NEGATIVE); INFLUENZA B NAA NEGATIVE (NEGATIVE); RESPIRATORY SYNCYTIAL VIR NAA NEGATIVE (NEGATIVE)
[2022-10-27 09:18] LABS: CARBON DIOXIDE,CO2 23.5 mmol/L (21.0-32.0); POTASSIUM,K 3.8 mmol/L (3.5-5.1)
[2022-10-27] MEDS ORDERED: methylPREDNISolone Sodium Succinate 40 MG/1 ML SDV IVPUSH ONE (09:33)
[2022-10-27] MEDS ORDERED: Azithromycin 500 MG in Sodium Chloride 0.9% 250 ML IV SCH (10:30)
[2022-10-27] MEDS ORDERED: Albuterol/Ipratropium 3.0-0.5 MG/3 ML Neb Soln NEB SCH (12:00)
[2022-10-27] MEDS: Albuterol 0.083% 2.5 MG/3 ML Neb Soln INH SCH ×3 (13:11→23:50)
[2022-10-27] MEDS: Ipratropium 0.02% 0.5 MG/2.5 ML Neb Soln INH SCH ×3 (13:11→23:53)
[2022-10-27] MEDS ORDERED: Warfarin 2.5 MG Tab PO SCH (14:00)
[2022-10-27 16:21] LABS: CARBON DIOXIDE,CO2 19.6 mmol/L (21.0-32.0); POTASSIUM,K 4.4 mmol/L (3.5-5.1)
[2022-10-27] MEDS ORDERED: Fluticasone/Salmeterol 250-50 MCG Inhalation Powder 14/Diskus INH SCH (21:00)
[2022-10-27] MEDS: Metoprolol Tartrate 25 MG Tab PO SCH (21:04)
[2022-10-27] MEDS: Rosuvastatin 10 MG Tab PO SCH (21:06)
[2022-10-27] MEDS: Fluticasone/Salmeterol 250-50 MCG Inhalation Powder 14/Diskus INH SCH (22:42)
[2022-10-28] MEDS: Ipratropium 0.02% 0.5 MG/2.5 ML Neb Soln INH SCH ×4 (06:56→23:57)
[2022-10-28] MEDS: Albuterol 0.083% 2.5 MG/3 ML Neb Soln INH SCH ×3 (06:56→18:05)
[2022-10-28] MEDS: Azithromycin 500 MG in Sodium Chloride 0.9% 250 ML IV SCH (08:42)
[2022-10-28] MEDS: Aspirin 81 MG Tab.Chew PO SCH (08:48)
[2022-10-28] MEDS: Metoprolol Tartrate 25 MG Tab PO SCH ×2 (08:48→20:56)
[2022-10-28] MEDS: Colchicine 0.6 MG Tab PO SCH (08:48)
[2022-10-28] MEDS: Fluticasone/Salmeterol 250-50 MCG Inhalation Powder 14/Diskus INH SCH ×2 (08:50→21:00)
[2022-10-28] MEDS: cefTRIAXone 1 GM in Sodium Chloride 0.9% 50 ML IV SCH (10:04)
[2022-10-28] MEDS ORDERED: Fluticasone NASAL Spray 16 GM Bottle NASBOTH PRN (11:30)
[2022-10-28] MEDS ORDERED: Levalbuterol HCl 1.25 MG/3 ML Neb NEB PRN (12:00)
[2022-10-28] MEDS: Sucralfate 1 GM Tab PO SCH ×2 (12:05→16:40)
[2022-10-28] MEDS: Furosemide 20 MG Tab PO SCH (12:06)
[2022-10-28] MEDS: amLODIPine 5 MG Tab PO SCH (12:06)
[2022-10-28] MEDS ORDERED: Warfarin 2 MG Tab PO SCH (14:00)
[2022-10-28] MEDS ORDERED: Warfarin 2.5 MG Tab PO SCH (14:00)
[2022-10-28] MEDS: MAGNESIUM CHLORIDE 71.5 MG PO SCH ×2 (14:13→22:05)
[2022-10-28] MEDS: Warfarin Sliding Scale PO SCH (14:30)
[2022-10-28] MEDS ORDERED: methylPREDNISolone Sodium Succinate 40 MG/1 ML SDV IVPUSH SCH (18:00)
[2022-10-28] MEDS ORDERED: Magnesium Sulfate/Water 2 GM in Premix Bag 1 BAG IV ONE (18:05)
[2022-10-28] MEDS: Tamsulosin 0.4 MG Cap.ER PO SCH (20:55)
[2022-10-28] MEDS: Rosuvastatin 10 MG Tab PO SCH (20:55)
[2022-10-29] MEDS: Sucralfate 1 GM Tab PO SCH ×3 (06:33→17:10)
[2022-10-29] MEDS: MAGNESIUM CHLORIDE 71.5 MG PO SCH ×3 (06:34→22:03)
[2022-10-29] MEDS: Ipratropium 0.02% 0.5 MG/2.5 ML Neb Soln INH SCH ×4 (06:49→23:37)
[2022-10-29] MEDS: Albuterol 0.083% 2.5 MG/3 ML Neb Soln INH SCH ×5 (06:50→23:38)
[2022-10-29 07:22] LABS: POTASSIUM,K 3.9 mmol/L (3.5-5.1)
[2022-10-29] MEDS: Azithromycin 500 MG in Sodium Chloride 0.9% 250 ML IV SCH (08:56)
[2022-10-29] MEDS: Metoprolol Tartrate 25 MG Tab PO SCH ×2 (09:03→21:55)
[2022-10-29] MEDS: Colchicine 0.6 MG Tab PO SCH (09:03)
[2022-10-29] MEDS: Aspirin 81 MG Tab.Chew PO SCH (09:04)
[2022-10-29] MEDS: Fish Oil/Omega-3 Fatty Acids 1 Gm Cap PO SCH (09:05)
[2022-10-29] MEDS: amLODIPine 5 MG Tab PO SCH (09:05)
[2022-10-29] MEDS: predniSONE 20 MG Tab PO SCH (09:05)
[2022-10-29] MEDS: Furosemide 20 MG Tab PO SCH (09:05)
[2022-10-29] MEDS: Fluticasone/Salmeterol 250-50 MCG Inhalation Powder 14/Diskus INH SCH ×2 (09:13→22:03)
[2022-10-29] MEDS: cefTRIAXone 1 GM in Sodium Chloride 0.9% 50 ML IV SCH (10:20)
[2022-10-29] MEDS ORDERED: Warfarin 5 MG Tab PO SCH (14:00)
[2022-10-29] MEDS: Warfarin Sliding Scale PO SCH (14:08)
[2022-10-29] MEDS: Tamsulosin 0.4 MG Cap.ER PO SCH (21:56)
[2022-10-29] MEDS: Rosuvastatin 10 MG Tab PO SCH (21:56)
[2022-10-30] MEDS: Sucralfate 1 GM Tab PO SCH ×3 (06:45→16:10)
[2022-10-30] MEDS: MAGNESIUM CHLORIDE 71.5 MG PO SCH ×3 (06:46→21:20)
[2022-10-30] MEDS: Albuterol 0.083% 2.5 MG/3 ML Neb Soln INH SCH ×4 (06:47→23:12)
[2022-10-30] MEDS: Ipratropium 0.02% 0.5 MG/2.5 ML Neb Soln INH SCH ×4 (06:47→23:12)
[2022-10-30 08:21] LABS: CARBON DIOXIDE,CO2 23.8 mmol/L (21.0-32.0); POTASSIUM,K 3.8 mmol/L (3.5-5.1)
[2022-10-30] MEDS: Azithromycin 500 MG in Sodium Chloride 0.9% 250 ML IV SCH (08:35)
[2022-10-30] MEDS: amLODIPine 5 MG Tab PO SCH (08:41)
[2022-10-30] MEDS: Metoprolol Tartrate 25 MG Tab PO SCH ×2 (08:42→21:23)
[2022-10-30] MEDS: Colchicine 0.6 MG Tab PO SCH (08:43)
[2022-10-30] MEDS: Aspirin 81 MG Tab.Chew PO SCH (08:43)
[2022-10-30] MEDS: Fish Oil/Omega-3 Fatty Acids 1 Gm Cap PO SCH (08:43)
[2022-10-30] MEDS: Furosemide 20 MG Tab PO SCH (08:44)
[2022-10-30] MEDS: predniSONE 20 MG Tab PO SCH (08:44)
[2022-10-30] MEDS ORDERED: Benzonatate 100 MG Cap PO PRN (10:15)
[2022-10-30] MEDS: Fluticasone/Salmeterol 250-50 MCG Inhalation Powder 14/Diskus INH SCH ×2 (10:22→21:23)
[2022-10-30] MEDS: cefTRIAXone 1 GM in Sodium Chloride 0.9% 50 ML IV SCH (10:23)
[2022-10-30] MEDS: guaiFENesin 600 MG Tab.ER PO SCH ×2 (11:33→21:19)
[2022-10-30] MEDS ORDERED: Warfarin 5 MG Tab PO SCH (14:00)
[2022-10-30] MEDS: Warfarin Sliding Scale PO SCH (14:10)
[2022-10-30] MEDS ORDERED: Magnesium Sulfate/Water 2 GM in Premix Bag 1 BAG IV ONE (16:21)
[2022-10-30] MEDS: Rosuvastatin 10 MG Tab PO SCH (21:19)
[2022-10-30] MEDS: Tamsulosin 0.4 MG Cap.ER PO SCH (21:19)
[2022-10-31] MEDS: Sucralfate 1 GM Tab PO SCH ×2 (06:35→13:13)
[2022-10-31] MEDS: Albuterol 0.083% 2.5 MG/3 ML Neb Soln INH SCH ×2 (06:36→11:51)
[2022-10-31] MEDS: Ipratropium 0.02% 0.5 MG/2.5 ML Neb Soln INH SCH ×2 (06:36→11:52)
[2022-10-31] MEDS: MAGNESIUM CHLORIDE 71.5 MG PO SCH ×2 (06:50→13:13)
[2022-10-31] MEDS: Azithromycin 500 MG in Sodium Chloride 0.9% 250 ML IV SCH (07:30)
[2022-10-31] MEDS: predniSONE 20 MG Tab PO SCH (07:33)
[2022-10-31] MEDS ORDERED: Magnesium Sulfate/Water 2 GM in Premix Bag 1 BAG IV ONE (08:00)
[2022-10-31] MEDS: Fluticasone/Salmeterol 250-50 MCG Inhalation Powder 14/Diskus INH SCH (09:12)
[2022-10-31] MEDS: Fish Oil/Omega-3 Fatty Acids 1 Gm Cap PO SCH (09:13)
[2022-10-31] MEDS: Furosemide 20 MG Tab PO SCH (09:13)
[2022-10-31] MEDS: amLODIPine 5 MG Tab PO SCH (09:13)
[2022-10-31] MEDS: guaiFENesin 600 MG Tab.ER PO SCH (09:13)
[2022-10-31] MEDS: Colchicine 0.6 MG Tab PO SCH (09:13)
[2022-10-31] MEDS: Metoprolol Tartrate 25 MG Tab PO SCH (09:14)
[2022-10-31] MEDS: Aspirin 81 MG Tab.Chew PO SCH (09:15)
[2022-10-31] MEDS: cefTRIAXone 1 GM in Sodium Chloride 0.9% 50 ML IV SCH ×2 (09:22→10:44)
[2022-10-31] MEDS ORDERED: cefTRIAXone 1 GM in Sodium Chloride 0.9% 50 ML IV SCH (10:45)
[2022-10-31] MEDS: Warfarin Sliding Scale PO SCH (13:40)
[2022-10-31] MEDS ORDERED: Warfarin 5 MG Tab PO SCH (14:00)
[2022-10-31 14:45] VITALS: BP 126/86; PULSE 69
== END 2022-10-31 14:18 | disposition home or self-care (01) | DRG 177 ==
LOC: MW.ED 08:17 → MW.MS 09:34 → MW.ED 11:20
PROVIDERS: ADMIT Internal Medicine; ATTEND Internal Medicine
DX: J18.9 Pneumonia, unspecified organism (principal); E86.0 Dehydration; J15.6 Pneumonia due to other Gram-negative bacteria; J44.9 Chronic obstructive pulmonary disease, unspecified; J96.01 Acute respiratory failure with hypoxia; I10 Essential (primary) hypertension; I24.8 Other forms of acute ischemic heart disease; I48.91 Unspecified atrial fibrillation; I73.9 Peripheral vascular disease, unspecified; G47.33 Obstructive sleep apnea (adult) (pediatric); N18.30 Chronic kidney disease, stage 3 unspecified; H91.90 Unspecified hearing loss, unspecified ear; E78.00 Pure hypercholesterolemia, unspecified; J43.9 Emphysema, unspecified; M10.9 Gout, unspecified; Z20.822 Contact with and (suspected) exposure to COVID-19; M81.0 Age-related osteoporosis without current pathological fracture; M35.3 Polymyalgia rheumatica; I25.10 Atherosclerotic heart disease of native coronary artery without angina pectoris; I50.9 Heart failure, unspecified; Z79.01 Long term (current) use of anticoagulants; Z85.46 Personal history of malignant neoplasm of prostate; Z79.82 Long term (current) use of aspirin; Z95.5 Presence of coronary angioplasty implant and graft; Z79.899 Other long term (current) drug therapy; Z98.890 Other specified postprocedural states; Z83.6 Family history of other diseases of the respiratory system
CPT/HCPCS: 0241U; 36415; 36600; 71045; 80048; 80053; 82803; 83605; 83735; 83880; 84100; 84484; 85025; 85610; 87040; 93005; 93306; 94640; 96365; 96375; 99285; 93010; A9270-GY; J0456; J0696; J2920; J3475; J3490; J7030; J7050; J7620-GY

== ENCOUNTER 2023-06-09 21:16 | Emergency (ER) | payer MEDICARE, OTHER ==
[2023-06-09] MEDS ORDERED: Bacitracin Oint 1 GM U/D Packet TOP ONE (21:37)
[2023-06-09] MEDS ORDERED: Diphtheria,Pertussis(Acell),Tetanus Vaccine 0.5 ML Syringe IM ONE (22:52)
[2023-06-09 23:22] VITALS: BP 125/76; PULSE 59
== END 2023-06-09 23:21 | disposition home or self-care (01) ==
LOC: MW.ED 21:16
DX: S09.90XA Unspecified injury of head, initial encounter (principal); S41.112A Laceration without foreign body of left upper arm, initial encounter; I48.91 Unspecified atrial fibrillation; I25.10 Atherosclerotic heart disease of native coronary artery without angina pectoris; I13.0 Hypertensive heart and chronic kidney disease with heart failure and stage 1 through stage 4 chronic kidney disease, or unspecified chronic kidney disease; N18.9 Chronic kidney disease, unspecified; I50.9 Heart failure, unspecified; E78.00 Pure hypercholesterolemia, unspecified; J43.9 Emphysema, unspecified; M10.9 Gout, unspecified; Z23 Encounter for immunization; Z88.8 Allergy status to other drugs, medicaments and biological substances; Z88.6 Allergy status to analgesic agent; Z79.82 Long term (current) use of aspirin; Z79.01 Long term (current) use of anticoagulants; Z79.899 Other long term (current) drug therapy; W01.0XXA Fall on same level from slipping, tripping and stumbling without subsequent striking against object, initial encounter
CPT/HCPCS: 70450; 70450-26; 90471; 90715; 99282; 99283-25

== ENCOUNTER 2024-01-13 10:21 | Emergency (ER) | payer MEDICARE, OTHER ==
[2024-01-13] MEDS: Ondansetron 4 MG/2 ML SDV IVPUSH STA (11:07)
[2024-01-13] MEDS: Morphine 4 MG/ML Syringe IVPUSH STA ×2 (11:07→12:59)
[2024-01-13 11:31] LABS: BASOPHILS ABSOLUTE AUTO 0.05 K/uL (0.00-0.20); BASOPHILS PERCENT AUTO 0.4 % (0.0-1.0); EOSINOPHILS ABSOLUTE AUTO 0.15 K/uL (0.00-0.45); EOSINOPHILS PERCENT AUTO 1.3 % (0.0-6.0); HEMATOCRIT 41.2 % (42.0-52.0); HEMOGLOBIN 13.7 g/dL (14.0-18.0); IMMATURE GRAN ABSOLUTE AUTO 0.04 K/uL (0.00-0.05); IMMATURE GRAN PERCENT AUTO 0.3 % (0.0-0.4); LYMPHOCYTES ABSOLUTE AUTO 1.15 K/uL (1.00-4.80); LYMPHOCYTES PERCENT AUTO 9.6 % (24.0-44.0); MEAN CORPUSCULAR HEMOGLOBIN 33.7 pg (28.0-32.0); MEAN CORPUSCULAR HGB CONC 33.3 g/dL (32.0-36.0); MEAN CORPUSCULAR VOLUME 101.2 fL (83.0-99.0); MEAN PLATELET VOLUME 10.6 fL (9.4-12.4); MONOCYTES ABSOLUTE AUTO 1.16 K/uL (0.00-0.80); MONOCYTES PERCENT AUTO 9.7 % (0.0-8.0); NEUTROPHILS ABSOLUTE AUTO 9.37 K/uL (1.80-7.70); NEUTROPHILS PERCENT AUTO 78.7 % (41.0-71.0); NRBC ABSOLUTE 0.02 K/uL (0.00-0.02); NRBC PERCENT 0.2 /100WBC (0.0-0.2); PLATELET COUNT,PLT 219 K/uL (150-400); RED BLOOD CELL COUNT 4.07 M/uL (4.52-5.90); WHITE BLOOD CELL COUNT,WBC 11.92 K/uL (3.9-11.3)
[2024-01-13 11:45] LABS: INR 2.8 (0.86-1.11); PTT,PARTIAL THROMBOPLSTIN TIME 41.3 SEC (23.9-30.7)
[2024-01-13 12:10] LABS: A/G RATIO 0.7 (0.9-1.6); ALBUMIN 2.9 g/dL (3.4-5.0); BILIRUBIN TOTAL 0.8 mg/dL (0.2-1.0); CALCIUM 8.8 mg/dL (8.5-10.1); CARBON DIOXIDE,CO2 24.9 mmol/L (21.0-32.0); CREATININE 1.6 mg/dL (0.8-1.3); EST CRCL DRUG DOSING (CG) 41.82 mL/min; POTASSIUM,K 4.2 mmol/L (3.5-5.1); PROTEIN TOTAL,TP 6.8 g/dL (6.4-8.2)
[2024-01-13 13:39] VITALS: BP 95/48; PULSE 62
== END 2024-01-13 13:39 | disposition home or self-care (01) ==
LOC: MW.ED 10:21
DX: L03.116 Cellulitis of left lower limb (principal); I13.0 Hypertensive heart and chronic kidney disease with heart failure and stage 1 through stage 4 chronic kidney disease, or unspecified chronic kidney disease; I50.9 Heart failure, unspecified; N18.30 Chronic kidney disease, stage 3 unspecified; I25.10 Atherosclerotic heart disease of native coronary artery without angina pectoris; J44.9 Chronic obstructive pulmonary disease, unspecified; I48.91 Unspecified atrial fibrillation; Z75.8 Other problems related to medical facilities and other health care; Z88.8 Allergy status to other drugs, medicaments and biological substances; Z88.6 Allergy status to analgesic agent; Z79.82 Long term (current) use of aspirin; Z79.899 Other long term (current) drug therapy; Z79.01 Long term (current) use of anticoagulants; Z79.51 Long term (current) use of inhaled steroids
CPT/HCPCS: 36415; 73562; 80053; 85025; 85610; 85730; 93971; 96374; 96375; 96376; 99284; J2270; J2405

== ENCOUNTER 2024-06-08 15:57 | Emergency (ER) | payer MEDICARE, OTHER ==
[2024-06-08 17:18] LABS: APPEARANCE,URINE CLOUDY; COLOR,URINE BROWN; GLUCOSE,URINE NEGATIVE (NEGATIVE); KETONES,URINE NEGATIVE (NEGATIVE); LEUKOCYTE ESTERASE,URINE TRACE (NEGATIVE); NITRITE,URINE POSITIVE (NEGATIVE); OCCULT BLOOD,URINE MODERATE (NEGATIVE); PROTEIN,URINE 100 mg/dL (NEGATIVE); UROBILINOGEN,URINE 0.2 EU/dL (<2.0)
[2024-06-08 17:19] LABS: BILIRUBIN,URINE SMALL (NEGATIVE)
[2024-06-08 17:28] LABS: RBC,URINE TOO NUMEROUS TO CT (0-2/HPF); WBC,URINE 0-3 (0-5/HPF)
[2024-06-08 17:29] LABS: BACTERIA,URINE FEW (NEGATIVE); EPITHELIAL CELLS,URINE NOT SEEN (NONE-FEW)
[2024-06-08 17:43] LABS: BASOPHILS ABSOLUTE AUTO 0.06 K/uL (0.00-0.20); BASOPHILS PERCENT AUTO 0.7 % (0.0-1.0); EOSINOPHILS ABSOLUTE AUTO 0.29 K/uL (0.00-0.45); EOSINOPHILS PERCENT AUTO 3.2 % (0.0-6.0); HEMATOCRIT 43.5 % (42.0-52.0); HEMOGLOBIN 14.4 g/dL (14.0-18.0); IMMATURE GRAN ABSOLUTE AUTO 0.03 K/uL (0.00-0.05); IMMATURE GRAN PERCENT AUTO 0.3 % (0.0-0.4); LYMPHOCYTES ABSOLUTE AUTO 1.35 K/uL (1.00-4.80); LYMPHOCYTES PERCENT AUTO 14.7 % (24.0-44.0); MEAN CORPUSCULAR HEMOGLOBIN 33.1 pg (28.0-32.0); MEAN CORPUSCULAR HGB CONC 33.1 g/dL (32.0-36.0); MEAN PLATELET VOLUME 10.2 fL (9.4-12.4); MONOCYTES ABSOLUTE AUTO 1.02 K/uL (0.00-0.80); MONOCYTES PERCENT AUTO 11.1 % (0.0-8.0); NEUTROPHILS ABSOLUTE AUTO 6.42 K/uL (1.80-7.70); NRBC ABSOLUTE 0.03 K/uL (0.00-0.02); NRBC PERCENT 0.3 /100WBC (0.0-0.2); PLATELET COUNT,PLT 225 K/uL (150-400); RED BLOOD CELL COUNT 4.35 M/uL (4.52-5.90); WHITE BLOOD CELL COUNT,WBC 9.17 K/uL (3.9-11.3)
[2024-06-08 17:57] LABS: INR 1.38 (0.86-1.11)
[2024-06-08 18:10] LABS: A/G RATIO 0.9 (0.9-1.6); ALBUMIN 3.2 g/dL (3.4-5.0); BILIRUBIN TOTAL 0.6 mg/dL (0.2-1.0); CALCIUM 9.1 mg/dL (8.5-10.1); CARBON DIOXIDE,CO2 27.4 mmol/L (21.0-32.0); CREATININE 1.8 mg/dL (0.8-1.3); EST CRCL DRUG DOSING (CG) 34.83 mL/min; POTASSIUM,K 4.7 mmol/L (3.5-5.1); PROTEIN TOTAL,TP 6.6 g/dL (6.4-8.2)
[2024-06-08 18:17] VITALS: BP 107/68; PULSE 59
[2024-06-08] MEDS: Nitrofurantoin Monohydrate/Macrocrystalline 100 MG Cap PO ONE (20:27)
== END 2024-06-08 20:35 | disposition home or self-care (01) ==
LOC: MW.ED 15:57
DX: N20.0 Calculus of kidney (principal); N39.0 Urinary tract infection, site not specified; I25.10 Atherosclerotic heart disease of native coronary artery without angina pectoris; I48.91 Unspecified atrial fibrillation; I13.0 Hypertensive heart and chronic kidney disease with heart failure and stage 1 through stage 4 chronic kidney disease, or unspecified chronic kidney disease; I50.9 Heart failure, unspecified; N18.9 Chronic kidney disease, unspecified; J44.9 Chronic obstructive pulmonary disease, unspecified; Z88.8 Allergy status to other drugs, medicaments and biological substances; Z79.82 Long term (current) use of aspirin; Z79.01 Long term (current) use of anticoagulants; Z79.51 Long term (current) use of inhaled steroids; Z79.52 Long term (current) use of systemic steroids; Z79.899 Other long term (current) drug therapy; Z75.8 Other problems related to medical facilities and other health care
CPT/HCPCS: 36415; 74176; 80053; 81001; 85025; 85610; 87086; 99284; A9270

== ENCOUNTER 2024-09-21 19:44 | Emergency (ER) | payer MEDICARE, OTHER ==
[2024-09-22] MEDS: Lactated Ringers 1,000 ML IV ONE (01:39)
[2024-09-22 01:42] LABS: APPEARANCE,URINE SLT CLOUDY; BILIRUBIN,URINE NEGATIVE (NEGATIVE); COLOR,URINE YELLOW; GLUCOSE,URINE NEGATIVE (NEGATIVE); KETONES,URINE NEGATIVE (NEGATIVE); LEUKOCYTE ESTERASE,URINE SMALL (NEGATIVE); NITRITE,URINE POSITIVE (NEGATIVE); OCCULT BLOOD,URINE TRACE-LYSED (NEGATIVE); PROTEIN,URINE 30 mg/dL (NEGATIVE); UROBILINOGEN,URINE 0.2 EU/dL (<2.0)
[2024-09-22 01:50] LABS: BASOPHILS ABSOLUTE AUTO 0.08 K/uL (0.00-0.20); BASOPHILS PERCENT AUTO 0.8 % (0.0-1.0); HEMATOCRIT 44.8 % (42.0-52.0); HEMOGLOBIN 14.9 g/dL (14.0-18.0); IMMATURE GRAN ABSOLUTE AUTO 0.08 K/uL (0.00-0.05); IMMATURE GRAN PERCENT AUTO 0.8 % (0.0-0.4); LYMPHOCYTES ABSOLUTE AUTO 2.47 K/uL (1.00-4.80); LYMPHOCYTES PERCENT AUTO 24.9 % (24.0-44.0); MEAN CORPUSCULAR HEMOGLOBIN 33.2 pg (28.0-32.0); MEAN CORPUSCULAR HGB CONC 33.3 g/dL (32.0-36.0); MEAN CORPUSCULAR VOLUME 99.8 fL (83.0-99.0); MEAN PLATELET VOLUME 9.9 fL (9.4-12.4); MONOCYTES PERCENT AUTO 12.1 % (0.0-8.0); NEUTROPHILS ABSOLUTE AUTO 5.88 K/uL (1.80-7.70); NEUTROPHILS PERCENT AUTO 59.4 % (41.0-71.0); NRBC ABSOLUTE 0.05 K/uL (0.00-0.02); NRBC PERCENT 0.5 /100WBC (0.0-0.2); PLATELET COUNT,PLT 202 K/uL (150-400); RED BLOOD CELL COUNT 4.49 M/uL (4.52-5.90); WHITE BLOOD CELL COUNT,WBC 9.91 K/uL (3.9-11.3)
[2024-09-22 02:01] LABS: BACTERIA,URINE 4+ (NEGATIVE); EPITHELIAL CELLS,URINE FEW (NONE-FEW)
[2024-09-22 02:15] LABS: A/G RATIO 0.8 (0.9-1.6); ALBUMIN 3.1 g/dL (3.4-5.0); BILIRUBIN TOTAL 0.5 mg/dL (0.2-1.0); CALCIUM 9.4 mg/dL (8.5-10.1); CARBON DIOXIDE,CO2 26.7 mmol/L (21.0-32.0); CREATININE 1.6 mg/dL (0.8-1.3); EST CRCL DRUG DOSING (CG) 39.19 mL/min; POTASSIUM,K 4.3 mmol/L (3.5-5.1); PROTEIN TOTAL,TP 6.9 g/dL (6.4-8.2)
[2024-09-22 03:13] VITALS: BP 155/92; PULSE 63
== END 2024-09-22 03:12 | disposition critical access hospital (66) ==
LOC: MW.ED 19:44
DX: N99.522 Malfunction of incontinent external stoma of urinary tract (principal); N30.00 Acute cystitis without hematuria; I48.91 Unspecified atrial fibrillation; I25.10 Atherosclerotic heart disease of native coronary artery without angina pectoris; I13.0 Hypertensive heart and chronic kidney disease with heart failure and stage 1 through stage 4 chronic kidney disease, or unspecified chronic kidney disease; I50.9 Heart failure, unspecified; N18.9 Chronic kidney disease, unspecified; E78.00 Pure hypercholesterolemia, unspecified; J44.9 Chronic obstructive pulmonary disease, unspecified; Z88.8 Allergy status to other drugs, medicaments and biological substances; Z79.51 Long term (current) use of inhaled steroids; Z79.01 Long term (current) use of anticoagulants; Z79.899 Other long term (current) drug therapy
CPT/HCPCS: 36415; 80053; 81001; 85025; 87086; 96360; 99283; J7120; 87088; 87186

== ENCOUNTER 2025-01-23 17:09 | Emergency (ER) | payer MEDICARE, OTHER ==
[2025-01-23 18:35] LABS: BASOPHILS ABSOLUTE AUTO 0.04 K/uL (0.00-0.20); BASOPHILS PERCENT AUTO 0.6 % (0.0-1.0); EOSINOPHILS ABSOLUTE AUTO 0.07 K/uL (0.00-0.45); EOSINOPHILS PERCENT AUTO 1.0 % (0.0-6.0); IMMATURE GRAN ABSOLUTE AUTO 0.01 K/uL (0.00-0.05); IMMATURE GRAN PERCENT AUTO 0.1 % (0.0-0.4); LYMPHOCYTES ABSOLUTE AUTO 1.62 K/uL (1.00-4.80); LYMPHOCYTES PERCENT AUTO 22.4 % (24.0-44.0); MEAN PLATELET VOLUME 9.9 fL (9.4-12.4); MONOCYTES ABSOLUTE AUTO 0.87 K/uL (0.00-0.80); MONOCYTES PERCENT AUTO 12.0 % (0.0-8.0); NEUTROPHILS ABSOLUTE AUTO 4.63 K/uL (1.80-7.70); NEUTROPHILS PERCENT AUTO 63.9 % (41.0-71.0); NRBC ABSOLUTE 0.04 K/uL (0.00-0.02); NRBC PERCENT 0.6 /100WBC (0.0-0.2); PLATELET COUNT,PLT 223 K/uL (150-400); RED BLOOD CELL COUNT 3.97 M/uL (4.52-5.90); WHITE BLOOD CELL COUNT,WBC 7.24 K/uL (3.9-11.3)
[2025-01-23 18:51] LABS: INR 4.76 (0.86-1.11)
[2025-01-23 19:02] LABS: BLOOD UREA NITROGEN,BUN 30.0 mg/dL (7.0-18.0); CARBON DIOXIDE,CO2 25.5 mmol/L (21.0-32.0); CHLORIDE,CL 108.0 mmol/L (98-107); CREATININE 1.8 mg/dL (0.8-1.3); EST CRCL DRUG DOSING (CG) 34.31 mL/min; GLUCOSE RANDOM 111.0 mg/dL (74-106); POTASSIUM,K 3.8 mmol/L (3.5-5.1); SODIUM,NA 143.0 mmol/L (136-148)
[2025-01-23 19:03] LABS: ESTIMATED GFR 39.0 mL/min (>60)
[2025-01-23] MEDS: Water For Irrigation,Sterile 1,000 ML Container IRR SCH (19:37)
[2025-01-24 00:47] VITALS: BP 157/100; PULSE 57
== END 2025-01-24 02:20 ==
LOC: MW.ED 17:09
DX: R31.0 Gross hematuria (principal); R79.1 Abnormal coagulation profile; I48.91 Unspecified atrial fibrillation; I13.0 Hypertensive heart and chronic kidney disease with heart failure and stage 1 through stage 4 chronic kidney disease, or unspecified chronic kidney disease; I50.9 Heart failure, unspecified; N18.9 Chronic kidney disease, unspecified; E78.00 Pure hypercholesterolemia, unspecified; I25.10 Atherosclerotic heart disease of native coronary artery without angina pectoris; J44.9 Chronic obstructive pulmonary disease, unspecified; Z88.8 Allergy status to other drugs, medicaments and biological substances; Z88.6 Allergy status to analgesic agent; Z79.01 Long term (current) use of anticoagulants; Z79.51 Long term (current) use of inhaled steroids; Z79.899 Other long term (current) drug therapy
CPT/HCPCS: 36415; 51705; 74176; 80048; 85025; 85610; 96365; 99285; J3430; 99284; J3490